=== PATIENT | male | born 1965 | race Caucasian/White ===

== ENCOUNTER 2016-07-27 06:14 | Emergency (ER) | payer OTHER ==
[~2016-07-27] VITALS: Ht 167.6 cm; Wt 99.8 kg
[~2016-07-27 06:14] MED LIST: AMLO2.5T2 PO; ASPI-1077 PO; CALC667T5 PO; EPOE1VIA13 SUBCUT; ERGO500043 PO; FURO-149 PO; HYDR100T25 PO; IRON1CAP17 PO; ISOS60TA4 PO; LIP80 PO; METO100T3 PO; SEVE800T8 PO; TERA1CAP4 PO; [UNRECOGNIZED DRUG - CODE] IJ
[2016-07-27 06:15] VITALS: BP_SYST 162
--- NOTE | 2016-07-27 06:15 | NUR ---
Dr. Donnelly made aware of 96.1 temporal temp. Warming measures initiated.
--- NOTE | 2016-07-27 06:18 | NUR ---
Patient to ER bed 1 to gown for evaluation. Side rails up. Assumed care of pt.
--- NOTE | 2016-07-27 06:20 | NUR ---
Pt. biba for ALOC from home. Per EMS pt. was found altered with a BS of 30 mg/dL, pt. was then given D10 fluids. Upon arrival BS was 164 mg/dL. Pt. is AAOx3. -SOB, -n/v
--- NOTE | 2016-07-27 06:24 | NUR ---
ER at bedside examining patient.
--- NOTE | 2016-07-27 07:14 | NUR ---
Bedside report given to Ector GEE
--- NOTE | 2016-07-27 07:14 | NUR ---
Pt report received from GERARD Curran. Pt AAOx4, non-diaphoretic, skin cool to touch. More warm blankets applied. Pt refuses rectal temp. Oral temp 94. Dr. Donnelly made aware, no new orders received.
[2016-07-27 07:16] LABS: BASOPHILS % (AUTO) 0.5 % (0.0-2.0); EOSINOPHILS # (AUTO) 0.1 K/uL (0.0-0.4); EOSINOPHILS % (AUTO) 1.9 % (0.0-4.0); HEMATOCRIT 32.8 % (36-54); LYMPHOCYTES # (AUTO) 1.7 K/uL (1.0-5.5); LYMPHOCYTES % (AUTO) 23.4 % (20.5-51.5); MEAN CORPUSCULAR HEMOGLOBIN 35 pg (27-31); MEAN CORPUSCULAR HGB CONC 34 % (32-36); MEAN CORPUSCULAR VOLUME 104 fL (79.0-98.0); MONOCYTES # (AUTO) 0.4 K/uL (0.0-1.0); MONOCYTES % (AUTO) 5.9 % (1.7-9.3); NEUTROPHILS # (AUTO) 5.1 K/uL (1.8-7.7); NEUTROPHILS % (AUTO) 68.3 % (40.0-70.0); PLATELET COUNT (AUTO) 180 K/uL (130-430); RED BLOOD CELL COUNT(AUTO) 3.15 MIL/uL (4.2-6.2); RED CELL DISTRIBUTION WIDTH 13.6 % (9.0-15.0); WHITE BLOOD COUNT (AUTO) 7.3 K/uL (4.8-10.8)
[2016-07-27 07:27] LABS: CALCIUM 10.1 mg/dL (8.4-11.0); POTASSIUM 4.8 mmol/L (3.5-5.1)
[2016-07-27 07:30] LABS: PROTHROMBIN TIME 10.5 SECS (9.5-12.5)
[2016-07-27 07:32] LABS: ALBUMIN 3.8 g/dL (3.4-4.8); TOTAL BILIRUBIN 0.3 mg/dL (0.0-1.0); TOTAL PROTEIN, SERUM 7.8 g/dL (6.4-8.3)
[2016-07-27 07:36] LABS: CREATININE 12.59 mg/dL (0.55-1.30)
--- NOTE | 2016-07-27 07:42 | NUR ---
Family member at bedside and states that pt has dialysis scheduled at [address] Gayle to update pt on POC.
--- NOTE | 2016-07-27 07:54 | NUR ---
MALCOM Gayle at bedside examining patient.
--- NOTE | 2016-07-27 08:16 | NUR ---
Oral Temp 97.5. Dietary provides breakfast tray.
--- NOTE | 2016-07-27 10:12 | NUR ---
Patient is resting comfortably and BS and Temp were taken and reported to Dr Gayle and he stated that the patient could go to dialysis. Mother Charito was called and no answer so left a message. Will follow up Addendum: 07/27/16 at 1014 by OSCAR Patient was easily arousable and able to answer questions
--- NOTE | 2016-07-27 10:24 | NUR ---
Patient's mother is here and patient is getting ready to leave and go to dialysis. Waiting for discharge paperwork
--- NOTE | 2016-07-27 10:39 | NUR ---
Patient given written and verbal discharge instructions and verbalizes understanding. ER MD discussed with patient the results and treatment provided. Patient in stable condition. ID arm band removed. IV catheter removed intact and dressing applied, no active bleeding. Patient educated on pain management and to follow up with PMD. Pain Scale 0. Opportunity for questions provided and answered.
[2016-07-27 10:40] VITALS: BP_SYST 135
== END 2016-07-27 10:40 | disposition home or self-care (01) ==
LOC: SED 06:14
DX: E11.649 Type 2 diabetes mellitus with hypoglycemia without coma (principal); T50.991A Poisoning by other drugs, medicaments and biological substances, accidental (unintentional), initial encounter; J44.9 Chronic obstructive pulmonary disease, unspecified; K21.9 Gastro-esophageal reflux disease without esophagitis; E11.22 Type 2 diabetes mellitus with diabetic chronic kidney disease; I12.0 Hypertensive chronic kidney disease with stage 5 chronic kidney disease or end stage renal disease; N18.6 End stage renal disease; I25.2 Old myocardial infarction; Z79.82 Long term (current) use of aspirin; Z88.8 Allergy status to other drugs, medicaments and biological substances; Y92.89 Other specified places as the place of occurrence of the external cause
CPT/HCPCS: 36415; 71010; 80053; 82962; 83605; 83880; 84484; 85025; 85610-TC; 85730-TC; 87040-TC; 93005; 99285

== ENCOUNTER 2017-11-17 03:11 | Emergency (ER) | payer OTHER ==
[~2017-11-17] VITALS: Ht 172.7 cm; Wt 86.2 kg
[~2017-11-17 03:11] MED LIST changes: +ERGO500020 PO; -ERGO500043 PO; +METO100T14 PO; -METO100T3 PO
[2017-11-17 03:15] VITALS: BP_SYST 160
[2017-11-17] MEDS ORDERED: NACL 0.9% 2,000 ML IV ONE (03:48)
[2017-11-17] MEDS ORDERED: HYT1 GT (03:57)
[2017-11-17] MEDS ORDERED: LIP40 PO (03:58)
[2017-11-17] MEDS ORDERED: ACETAMINOPHEN 500 MG TABLET PO ONE (04:00)
[2017-11-17] MEDS ORDERED: NPH,100V2 SQ ×2 (04:05)
[2017-11-17 04:11] LABS: BASOPHILS # (AUTO) 0.1 K/uL (0.0-0.2); BASOPHILS % (AUTO) 0.6 % (0.0-2.0); EOSINOPHILS # (AUTO) 0.2 K/uL (0.0-0.4); EOSINOPHILS % (AUTO) 2.1 % (0.0-4.0); HEMATOCRIT 39.5 % (36-54); HEMOGLOBIN 13.2 g/dL (14.0-18.0); LYMPHOCYTES # (AUTO) 3.4 K/uL (1.0-5.5); MEAN CORPUSCULAR HEMOGLOBIN 36 pg (27-31); MEAN CORPUSCULAR HGB CONC 34 % (32-36); MEAN CORPUSCULAR VOLUME 107 fL (79.0-98.0); MONOCYTES # (AUTO) 0.5 K/uL (0.0-1.0); MONOCYTES % (AUTO) 6.4 % (1.7-9.3); NEUTROPHILS # (AUTO) 4.3 K/uL (1.8-7.7); PLATELET COUNT (AUTO) 215 K/uL (130-430); RED BLOOD CELL COUNT(AUTO) 3.69 MIL/uL (4.2-6.2); RED CELL DISTRIBUTION WIDTH 13.6 % (9.0-15.0); WHITE BLOOD COUNT (AUTO) 8.5 K/uL (4.8-10.8)
[2017-11-17 04:34] LABS: NEUTROPHILS % (AUTO) 50.9 % (40.0-70.0)
[2017-11-17 04:45] VITALS: BP_SYST 154
[2017-11-17 04:52] LABS: ALBUMIN 3.8 g/dL (3.4-4.8); CALCIUM 10.2 mg/dL (8.4-11.0); POTASSIUM 3.9 mmol/L (3.5-5.1); TOTAL BILIRUBIN 0.4 mg/dL (0.0-1.0)
[2017-11-17 04:56] LABS: CREATININE 11.45 mg/dL (0.55-1.30)
== END 2017-11-17 04:45 | disposition home or self-care (01) ==
LOC: SED 03:11
DX: E11.649 Type 2 diabetes mellitus with hypoglycemia without coma (principal); I25.2 Old myocardial infarction; J44.9 Chronic obstructive pulmonary disease, unspecified; Z86.73 Personal history of transient ischemic attack (TIA), and cerebral infarction without residual deficits; Z88.6 Allergy status to analgesic agent; Z79.899 Other long term (current) drug therapy
CPT/HCPCS: 36415; 80053; 83690-TC; 85025; 99284

== ENCOUNTER 2018-05-07 07:47 | Inpatient (IN) | payer OTHER ==
[~2018-05-07] VITALS: Ht 172.7 cm; Wt 89.4 kg
[~2018-05-07 07:47] MED LIST changes: +HYT1 GT; +LIP40 PO; -LIP80 PO; +NPH,100V2 SQ; -TERA1CAP4 PO
[2018-05-07 07:50] VITALS: BP_SYST 105
[2018-05-07] MEDS ORDERED: NACL 0.9% 1,000 ML IV ONE (08:15)
[2018-05-07 08:58] LABS: POTASSIUM 4.1 mmol/L (3.5-5.1)
[2018-05-07 09:00] LABS: HEMATOCRIT 33.6 % (36-54); HEMOGLOBIN 11.4 g/dL (14.0-18.0); LYMPHOCYTES % (AUTO) 19.1 % (20.5-51.5); MEAN CORPUSCULAR HEMOGLOBIN 36 pg (27-31); MEAN CORPUSCULAR HGB CONC 34 % (32-36); MEAN CORPUSCULAR VOLUME 107 fL (79.0-98.0); MONOCYTES % (AUTO) 3.5 % (1.7-9.3); PLATELET COUNT (AUTO) 169 K/uL (130-430); RED BLOOD CELL COUNT(AUTO) 3.13 MIL/uL (4.2-6.2); WHITE BLOOD COUNT (AUTO) 6.7 K/uL (4.8-10.8)
[2018-05-07 09:01] LABS: BASOPHILS # (AUTO) 0.1 K/uL (0.0-0.2); BASOPHILS % (AUTO) 0.8 % (0.0-2.0); EOSINOPHILS % (AUTO) 0.6 % (0.0-4.0); LYMPHOCYTES # (AUTO) 1.3 K/uL (1.0-5.5); MONOCYTES # (AUTO) 0.2 K/uL (0.0-1.0); NEUTROPHILS # (AUTO) 5.1 K/uL (1.8-7.7)
[2018-05-07 09:02] LABS: INR 1.1 (0.80-1.20); PROTHROMBIN TIME 10.8 SECS (9.5-12.5)
[2018-05-07 09:04] LABS: ALBUMIN 3.2 g/dL (3.4-4.8); TOTAL BILIRUBIN 0.3 mg/dL (0.0-1.0)
[2018-05-07] MEDS ORDERED: FOLI-43 PO (09:32)
[2018-05-07] MEDS ORDERED: HYT1 PO (09:32)
[2018-05-07 10:14] LABS: BILIRUBIN,URINE NEGATIVE (NEGATIVE); CLARITY/URINE CLEAR (CLEAR); COLOR,URINE YELLOW (YELLOW); GLUCOSE,URINE NEGATIVE (NEGATIVE); KETONES,URINE NEGATIVE (NEGATIVE); LEUKOCYTE ESTERASE ,URINE NEGATIVE (NEGATIVE); NITRITE, URINE NEGATIVE (NEGATIVE); PROTEIN URINE 1+ (NEGATIVE); UROBILINOGEN,URINE 0.2 (0.2-1.0)
[2018-05-07] MEDS ORDERED: PIPERACILLIN/TAZO 3.375 GM in NS 50 ML IV ONE (10:15)
[2018-05-07] MEDS ORDERED: NACL 0.9% 2,000 ML IV ONE (10:15)
[2018-05-07 10:17] LABS: BLOOD, URINE TRACE (NEGATIVE)
[2018-05-07 10:49] LABS: BACTERIA,URINE FEW /HPF (None Seen)
[2018-05-07 10:50] LABS: MUCUS,URINE None Seen /LPF (None Seen); WBC,URINE 0-3 /HPF (0-3); YEAST,URINE None Seen /HPF (None Seen)
[2018-05-07] MEDS ORDERED: DEXTROSE 50% JECT 50 ML DISP.SYRIN IVP ONE (11:00)
[2018-05-07] MEDS ORDERED: PIPERACILLIN/TAZOBACTAM 3.375 GM/VIAL (ZOSYN) IV ONE (11:14)
[2018-05-07] MEDS ORDERED: D10W 1,000 ML IV SCH (11:30)
[2018-05-07 12:28] VITALS: BP_SYST 140
[2018-05-07] MEDS ORDERED: ASPIRIN 81 MG TAB.CHEW PO ONE (16:45)
[2018-05-07 17:54] VITALS: BP_SYST 108
[2018-05-07] MEDS: ATORVASTATIN 20 MG TABLET PO SCH (18:02)
[2018-05-07] MEDS: SEVELAMER HCL 800 MG TABLET PO SCH (18:02)
[2018-05-07 19:58] VITALS: BP_SYST 152
[2018-05-07] MEDS: METOPROLOL TARTRATE 50 MG TABLET PO SCH (20:51)
[2018-05-07] MEDS: ISOSORBIDE MONONITRATE 30 MG TAB.ER.24H PO SCH (20:51)
[2018-05-07] MEDS ORDERED: ZOLPIDEM TARTRATE 5 MG TABLET PO SCH (21:30)
[2018-05-07] MEDS: hydrALAZINE HCL 25 MG TABLET PO SCH (22:09)
[2018-05-08 02:38] VITALS: BP_SYST 106
[2018-05-08] MEDS: SEVELAMER HCL 800 MG TABLET PO SCH ×3 (07:47→17:37)
[2018-05-08 08:16] VITALS: BP_SYST 123
[2018-05-08] MEDS: ASPIRIN 81 MG TAB.CHEW PO SCH (09:10)
[2018-05-08] MEDS: FOLIC ACID 1 MG TABLET PO SCH (09:10)
[2018-05-08] MEDS: ISOSORBIDE MONONITRATE 30 MG TAB.ER.24H PO SCH ×2 (09:11→20:31)
[2018-05-08] MEDS: METOPROLOL TARTRATE 50 MG TABLET PO SCH ×2 (09:11→20:31)
[2018-05-08] MEDS: hydrALAZINE HCL 25 MG TABLET PO SCH ×3 (09:12→20:32)
[2018-05-08 09:14] LABS: CALCIUM 8.3 mg/dL (8.4-11.0); POTASSIUM 3.7 mmol/L (3.5-5.1)
[2018-05-08 09:19] LABS: ALBUMIN 3.1 g/dL (3.4-4.8); TOTAL BILIRUBIN 0.6 mg/dL (0.0-1.0)
[2018-05-08 09:24] LABS: CREATININE 8.19 mg/dL (0.55-1.30)
[2018-05-08 09:31] LABS: HEMOGLOBIN 10.9 g/dL (14.0-18.0); MEAN CORPUSCULAR VOLUME 105 fL (79.0-98.0); RED BLOOD CELL COUNT(AUTO) 3.03 MIL/uL (4.2-6.2); WHITE BLOOD COUNT (AUTO) 8.1 K/uL (4.8-10.8)
[2018-05-08 09:32] LABS: BASOPHILS # (AUTO) 0.1 K/uL (0.0-0.2); BASOPHILS % (AUTO) 0.8 % (0.0-2.0); EOSINOPHILS # (AUTO) 0.1 K/uL (0.0-0.4); EOSINOPHILS % (AUTO) 1.3 % (0.0-4.0); MEAN CORPUSCULAR HEMOGLOBIN 36 pg (27-31); MEAN CORPUSCULAR HGB CONC 34 % (32-36); MONOCYTES # (AUTO) 0.6 K/uL (0.0-1.0); MONOCYTES % (AUTO) 7.1 % (1.7-9.3); NEUTROPHILS # (AUTO) 4.4 K/uL (1.8-7.7); NEUTROPHILS % (AUTO) 53.8 % (40.0-70.0); PLATELET COUNT (AUTO) 161 K/uL (130-430); RED CELL DISTRIBUTION WIDTH 14.8 % (9.0-15.0)
[2018-05-08 12:40] VITALS: BP_SYST 148
[2018-05-08] MEDS ORDERED: DEXTROSE 50% JECT 50 ML DISP.SYRIN IVP PRN (15:30)
[2018-05-08 17:00] VITALS: BP_SYST 139
[2018-05-08] MEDS: ATORVASTATIN 20 MG TABLET PO SCH (17:38)
[2018-05-08 20:00] VITALS: BP_SYST 143
[2018-05-09 00:59] VITALS: BP_SYST 61
[2018-05-09 06:07] LABS: CALCIUM 8.4 mg/dL (8.4-11.0); POTASSIUM 4.6 mmol/L (3.5-5.1)
[2018-05-09 06:23] LABS: ALBUMIN 2.8 g/dL (3.4-4.8); TOTAL BILIRUBIN 0.5 mg/dL (0.0-1.0)
[2018-05-09 06:52] LABS: CREATININE 11.32 mg/dL (0.55-1.30)
[2018-05-09 07:52] VITALS: BP_SYST 105
[2018-05-09] MEDS: FOLIC ACID 1 MG TABLET PO SCH (08:44)
[2018-05-09] MEDS: SEVELAMER HCL 800 MG TABLET PO SCH ×3 (08:44→17:27)
[2018-05-09] MEDS: ASPIRIN 81 MG TAB.CHEW PO SCH (08:46)
[2018-05-09] MEDS: METOPROLOL TARTRATE 50 MG TABLET PO SCH ×2 (08:46→20:29)
[2018-05-09] MEDS: ISOSORBIDE MONONITRATE 30 MG TAB.ER.24H PO SCH ×2 (08:46→20:30)
[2018-05-09] MEDS: hydrALAZINE HCL 25 MG TABLET PO SCH ×3 (08:50→20:30)
[2018-05-09] MEDS: INSULIN LISPRO SLIDING SCALE 100 UNITS/ML VIAL (humaLOG) SUBCUT PRN ×2 (11:49→20:35)
[2018-05-09 12:46] VITALS: BP_SYST 128
[2018-05-09 16:28] VITALS: BP_SYST 141
[2018-05-09] MEDS: ATORVASTATIN 20 MG TABLET PO SCH (17:27)
[2018-05-09 20:00] VITALS: BP_SYST 129
[2018-05-10 01:07] VITALS: BP_SYST 140
[2018-05-10] MEDS ORDERED: INSULIN GLARGINE 100 UNITS/ML 10 ML VIAL SUBCUT SCH (07:00)
[2018-05-10 07:53] VITALS: BP_SYST 124
[2018-05-10] MEDS: hydrALAZINE HCL 25 MG TABLET PO SCH ×2 (08:39→14:42)
[2018-05-10] MEDS: METOPROLOL TARTRATE 50 MG TABLET PO SCH (08:40)
[2018-05-10] MEDS: ISOSORBIDE MONONITRATE 30 MG TAB.ER.24H PO SCH (08:40)
[2018-05-10] MEDS: ASPIRIN 81 MG TAB.CHEW PO SCH (08:40)
[2018-05-10] MEDS: FOLIC ACID 1 MG TABLET PO SCH (08:40)
[2018-05-10] MEDS: SEVELAMER HCL 800 MG TABLET PO SCH ×3 (08:41→17:02)
[2018-05-10] MEDS: INSULIN LISPRO SLIDING SCALE 100 UNITS/ML VIAL (humaLOG) SUBCUT PRN ×2 (11:31→17:06)
[2018-05-10 12:55] VITALS: BP_SYST 150
[2018-05-10 16:24] VITALS: BP_SYST 120
[2018-05-10 16:53] VITALS: BP_SYST 121
[2018-05-10] MEDS: ATORVASTATIN 20 MG TABLET PO SCH (17:02)
== END 2018-05-10 18:15 | disposition home or self-care (01) | DRG 280 ==
LOC: SED 07:47 → STU 11:28
PROVIDERS: ADMIT Internal Medicine; ATTEND Internal Medicine
PROC: 5A1D70Z Performance of Urinary Filtration, Intermittent, Less than 6 Hours Per Day (ICD-10-PCS; principal; 2018-05-07)
PROC: 5A1D70Z Performance of Urinary Filtration, Intermittent, Less than 6 Hours Per Day (ICD-10-PCS; 2018-05-09)
DX: I21.A1 Myocardial infarction type 2 (principal); N18.6 End stage renal disease; G93.41 Metabolic encephalopathy; J44.0 Chronic obstructive pulmonary disease with (acute) lower respiratory infection; I12.0 Hypertensive chronic kidney disease with stage 5 chronic kidney disease or end stage renal disease; E11.649 Type 2 diabetes mellitus with hypoglycemia without coma; E11.22 Type 2 diabetes mellitus with diabetic chronic kidney disease; I71.4 Abdominal aortic aneurysm, without rupture; D64.9 Anemia, unspecified; I48.0 Paroxysmal atrial fibrillation; E21.3 Hyperparathyroidism, unspecified; T68.XXXA Hypothermia, initial encounter; J20.9 Acute bronchitis, unspecified; E78.00 Pure hypercholesterolemia, unspecified; E78.5 Hyperlipidemia, unspecified; H57.02 Anisocoria; I25.10 Atherosclerotic heart disease of native coronary artery without angina pectoris; I25.2 Old myocardial infarction; Z79.4 Long term (current) use of insulin; Z86.73 Personal history of transient ischemic attack (TIA), and cerebral infarction without residual deficits; Z95.5 Presence of coronary angioplasty implant and graft; Z99.2 Dependence on renal dialysis; Z88.6 Allergy status to analgesic agent; Z95.2 Presence of prosthetic heart valve
CPT/HCPCS: 36415; 36600; 70450-TC; 71045; 80053; 81000-TC; 82803-TC; 82962; 83036; 83605; 83880; 84443-TC; 84484; 85025; 85610-TC; 85730-TC; 87040-TC; 87081; 87086; 90935; 90937; 93005; 93306; 95816; 96361; 96365; 96375; 99291; G0378; J1815; J2543; J7030

== ENCOUNTER 2018-09-12 23:47 | Inpatient (IN) | payer OTHER ==
[~2018-09-12] VITALS: Ht 172.7 cm; Wt 88.0 kg
[~2018-09-12 23:47] MED LIST changes: -AMLO2.5T2 PO; +FOLI-43 PO; -FURO-149 PO; +HYT1 PO; -NPH,100V2 SQ
[2018-09-12 23:50] VITALS: BP_SYST 124
[2018-09-13] MEDS ORDERED: NACL 0.9% 1,000 ML IV ONE (00:15)
[2018-09-13 00:27] LABS: BASOPHILS # (AUTO) 0.1 K/uL (0.0-0.2); BASOPHILS % (AUTO) 1.2 % (0.0-2.0); EOSINOPHILS # (AUTO) 0.1 K/uL (0.0-0.4); EOSINOPHILS % (AUTO) 2.1 % (0.0-4.0); HEMATOCRIT 29.3 % (36-54); HEMOGLOBIN 9.8 g/dL (14.0-18.0); LYMPHOCYTES % (AUTO) 19.9 % (20.5-51.5); MEAN CORPUSCULAR HEMOGLOBIN 36 pg (27-31); MEAN CORPUSCULAR HGB CONC 33 % (32-36); MEAN CORPUSCULAR VOLUME 107 fL (79.0-98.0); MONOCYTES # (AUTO) 0.5 K/uL (0.0-1.0); MONOCYTES % (AUTO) 9.2 % (1.7-9.3); NEUTROPHILS # (AUTO) 3.4 K/uL (1.8-7.7); NEUTROPHILS % (AUTO) 67.6 % (40.0-70.0); PLATELET COUNT (AUTO) 154 K/uL (130-430); RED BLOOD CELL COUNT(AUTO) 2.74 MIL/uL (4.2-6.2); RED CELL DISTRIBUTION WIDTH 14.4 % (9.0-15.0)
[2018-09-13 00:43] LABS: CALCIUM 9.3 mg/dL (8.4-11.0); CREATININE 6.32 mg/dL (0.55-1.30)
[2018-09-13] MEDS ORDERED: DEXTROSE 50% JECT 50 ML DISP.SYRIN IVP ONE (00:45)
[2018-09-13 00:50] LABS: ALBUMIN 3.2 g/dL (3.4-4.8); TOTAL BILIRUBIN 0.3 mg/dL (0.0-1.0)
[2018-09-13 02:41] VITALS: BP_SYST 143
[2018-09-13 05:33] LABS: BASOPHILS # (AUTO) 0.1 K/uL (0.0-0.2); BASOPHILS % (AUTO) 1.1 % (0.0-2.0); EOSINOPHILS % (AUTO) 0.5 % (0.0-4.0); HEMATOCRIT 28.2 % (36-54); HEMOGLOBIN 9.4 g/dL (14.0-18.0); LYMPHOCYTES # (AUTO) 0.9 K/uL (1.0-5.5); MEAN CORPUSCULAR HEMOGLOBIN 36 pg (27-31); MEAN CORPUSCULAR HGB CONC 33 % (32-36); MEAN CORPUSCULAR VOLUME 107 fL (79.0-98.0); MONOCYTES # (AUTO) 0.4 K/uL (0.0-1.0); NEUTROPHILS # (AUTO) 4.4 K/uL (1.8-7.7); NEUTROPHILS % (AUTO) 75.4 % (40.0-70.0); PLATELET COUNT (AUTO) 158 K/uL (130-430); RED BLOOD CELL COUNT(AUTO) 2.65 MIL/uL (4.2-6.2); RED CELL DISTRIBUTION WIDTH 14.2 % (9.0-15.0); WHITE BLOOD COUNT (AUTO) 5.8 K/uL (4.8-10.8)
[2018-09-13 05:48] LABS: ALBUMIN 2.9 g/dL (3.4-4.8); CALCIUM 8.8 mg/dL (8.4-11.0); CREATININE 6.65 mg/dL (0.55-1.30); POTASSIUM 4.9 mmol/L (3.5-5.1); TOTAL BILIRUBIN 0.5 mg/dL (0.0-1.0)
[2018-09-13] MEDS: INSULIN REGULAR, HUMAN 100 UNITS/ML, 10 ML VIAL (humuLIN R) SUBCUT PRN ×5 (06:08→21:30)
[2018-09-13 08:00] VITALS: BP_SYST 136
[2018-09-13] MEDS: FOLIC ACID 1 MG TABLET PO SCH (08:28)
[2018-09-13] MEDS: TERAZOSIN HCL 1 MG CAPSULE (HYTRIN) PO SCH ×2 (08:28→21:21)
[2018-09-13] MEDS: hydrALAZINE HCL 25 MG TABLET PO SCH ×3 (08:29→21:23)
[2018-09-13] MEDS: ISOSORBIDE MONONITRATE 30 MG TAB.ER.24H PO SCH ×2 (08:30→21:22)
[2018-09-13] MEDS: ASPIRIN 81 MG TAB.CHEW PO SCH (08:30)
[2018-09-13] MEDS ORDERED: TERAZOSIN HCL 1 MG CAPSULE (HYTRIN) GT SCH (09:00)
[2018-09-13 11:30] VITALS: BP_SYST 125
[2018-09-13 15:31] VITALS: BP_SYST 117
[2018-09-13] MEDS: ATORVASTATIN 20 MG TABLET PO SCH (17:03)
[2018-09-13 21:15] VITALS: BP_SYST 154
[2018-09-14 00:51] VITALS: BP_SYST 136
[2018-09-14 08:00] VITALS: BP_SYST 130
[2018-09-14] MEDS: hydrALAZINE HCL 25 MG TABLET PO SCH ×2 (08:02→15:00)
[2018-09-14] MEDS: TERAZOSIN HCL 1 MG CAPSULE (HYTRIN) PO SCH (08:02)
[2018-09-14] MEDS: FOLIC ACID 1 MG TABLET PO SCH (08:05)
[2018-09-14] MEDS: ISOSORBIDE MONONITRATE 30 MG TAB.ER.24H PO SCH (08:05)
[2018-09-14] MEDS: ASPIRIN 81 MG TAB.CHEW PO SCH (08:05)
[2018-09-14] MEDS: INSULIN REGULAR, HUMAN 100 UNITS/ML, 10 ML VIAL (humuLIN R) SUBCUT PRN ×2 (11:28→17:05)
[2018-09-14 12:34] VITALS: BP_SYST 136
[2018-09-14 16:20] VITALS: BP_SYST 110
[2018-09-14] MEDS ORDERED: EPOETIN ALFA 10,000 UNITS/ML VIAL SUBCUT SCH (17:00)
[2018-09-14] MEDS: ATORVASTATIN 20 MG TABLET PO SCH (17:04)
[2018-09-14 18:11] VITALS: BP_SYST 130
== END 2018-09-14 19:49 | disposition home or self-care (01) | DRG 637 ==
LOC: SED 23:47 → STU 09-13 01:51
PROVIDERS: ADMIT Family Medicine; ATTEND Family Medicine
PROC: 5A1D70Z Performance of Urinary Filtration, Intermittent, Less than 6 Hours Per Day (ICD-10-PCS; principal; 2018-09-14)
DX: E11.649 Type 2 diabetes mellitus with hypoglycemia without coma (principal); G93.41 Metabolic encephalopathy; I12.0 Hypertensive chronic kidney disease with stage 5 chronic kidney disease or end stage renal disease; E44.0 Moderate protein-calorie malnutrition; N18.6 End stage renal disease; E11.22 Type 2 diabetes mellitus with diabetic chronic kidney disease; I25.10 Atherosclerotic heart disease of native coronary artery without angina pectoris; J44.9 Chronic obstructive pulmonary disease, unspecified; E11.21 Type 2 diabetes mellitus with diabetic nephropathy; D63.1 Anemia in chronic kidney disease; Z88.8 Allergy status to other drugs, medicaments and biological substances; Z79.899 Other long term (current) drug therapy; I25.2 Old myocardial infarction; Z86.73 Personal history of transient ischemic attack (TIA), and cerebral infarction without residual deficits; Z79.4 Long term (current) use of insulin; Z68.29 Body mass index [BMI] 29.0-29.9, adult; T38.3X5A Adverse effect of insulin and oral hypoglycemic [antidiabetic] drugs, initial encounter; Y92.009 Unspecified place in unspecified non-institutional (private) residence as the place of occurrence of the external cause
CPT/HCPCS: 36415; 80053; 82962; 85025; 87081; 90935; 93005; 96360; 96374; 99291; G0378; J0885; J1815

== ENCOUNTER 2019-02-24 23:05 | Emergency (ER) | payer OTHER ==
[~2019-02-24] VITALS: Ht 175.3 cm; Wt 82.6 kg
[~2019-02-24 23:05] MED LIST changes: -CALC667T5 PO; +CALC667T6 PO
[2019-02-24 23:15] VITALS: BP_SYST 160
--- NOTE | 2019-02-24 23:30 | NUR ---
ER at bedside examining patient.
--- NOTE | 2019-02-24 23:30 | NUR ---
Patient to ER bed 3 to gown for evaluation. Side rails up.
--- NOTE | 2019-02-25 | NUR ---
Pt brought in by ambulance. Pt states that he has AV shunt in L arms that has been bleeding for approx 2 hours without relief. pt was concerned that he would bleed too much, so he called 911. Pt denies chest pain, nausea, vomiting, diarrhea, shortness of breath. Pt denies any medical complaint at this time. Shunt site appears to have no s/s of infection.
[2019-02-25 00:58] VITALS: BP_SYST 158
--- NOTE | 2019-02-25 00:58 | NUR ---
Patient given written and verbal discharge instructions and verbalizes understanding. ER MD discussed with patient the results and treatment provided. Patient in stable condition. ID arm band removed. No IV catheter, No active bleeding from Shunt site Rx of given. Patient educated on pain management and to follow up with PMD. Pain Scale 0/10. Opportunity for questions provided and answered. Medication side effect fact sheet provided.
== END 2019-02-25 00:58 | disposition home or self-care (01) ==
LOC: SED 23:05
DX: T82.838A Hemorrhage due to vascular prosthetic devices, implants and grafts, initial encounter (principal); I25.2 Old myocardial infarction; I25.10 Atherosclerotic heart disease of native coronary artery without angina pectoris; I10 Essential (primary) hypertension; E11.9 Type 2 diabetes mellitus without complications; J44.9 Chronic obstructive pulmonary disease, unspecified; N28.9 Disorder of kidney and ureter, unspecified; E03.9 Hypothyroidism, unspecified; Z79.899 Other long term (current) drug therapy; Z88.6 Allergy status to analgesic agent; Z79.82 Long term (current) use of aspirin; Z86.73 Personal history of transient ischemic attack (TIA), and cerebral infarction without residual deficits
CPT/HCPCS: 99283

== ENCOUNTER 2019-11-11 23:44 | Emergency (ER) | payer OTHER ==
[~2019-11-11] VITALS: Ht 172.7 cm; Wt 81.2 kg
[2019-11-11 23:44] VITALS: BP_SYST 134
--- NOTE | 2019-11-11 23:50 | NUR ---
Patient to ER bed 6 to gown for evaluation. Side rails up.
--- NOTE | 2019-11-11 23:56 | NUR ---
PT PRESENTS WITH BLS AMBULANCE CO RIGHT UPPER ARM SHUNT BEGAN BLEEDING WHILE AT HOME PRIOR TO COMING. STATES HE HAD DIALYSIS THIS MORNING WITH NO COMPLICATIONS. TONIGHT SHUNT BEGAN TO BLEED LARGE AMOUNTS OF BLOOD AT HOME. EMS PLACED A COMPRSSION DRESSING OVER THE SITE. DENIES ANY PAIN. AAOX4, V/S STABLE
--- NOTE | 2019-11-12 00:08 | NUR ---
DR. SCHMITT AT THE BEDSIDE EVALUATING PT
--- NOTE | 2019-11-12 00:09 | NUR ---
DR. SCHMITT EVALUATED LEFT ARM AND RE-WRAPPED WITH GAUZE AND COMPRESSION DRESSING. NO BLEEDING NOTED. TO FOLLOW UP WITH PRIMARY MD FOR EVAL. PT TOLERATED WELL.
--- NOTE | 2019-11-12 00:15 | NUR ---
Patient given written and verbal discharge instructions and verbalizes understanding. ER MD discussed with patient the results and treatment provided. Patient in stable condition. ID arm band removed. Patient educated on pain management and to follow up with PMD. Pain Scale 0/10. Opportunity for questions provided and answered. Medication side effect fact sheet provided.
[2019-11-12 00:20] VITALS: BP_SYST 134
== END 2019-11-12 00:20 | disposition home or self-care (01) ==
LOC: SED 23:44
DX: T82.838A Hemorrhage due to vascular prosthetic devices, implants and grafts, initial encounter (principal); I12.0 Hypertensive chronic kidney disease with stage 5 chronic kidney disease or end stage renal disease; E11.22 Type 2 diabetes mellitus with diabetic chronic kidney disease; N18.6 End stage renal disease; E03.9 Hypothyroidism, unspecified; J44.9 Chronic obstructive pulmonary disease, unspecified; I25.2 Old myocardial infarction; Z86.79 Personal history of other diseases of the circulatory system; Z79.4 Long term (current) use of insulin; Z79.899 Other long term (current) drug therapy; Z79.82 Long term (current) use of aspirin; Z88.8 Allergy status to other drugs, medicaments and biological substances; X58.XXXA Exposure to other specified factors, initial encounter
CPT/HCPCS: 99283

== ENCOUNTER 2021-06-11 09:15 | Emergency (ER) | payer OTHER ==
[~2021-06-11] VITALS: Ht 172.7 cm; Wt 77.1 kg
[~2021-06-11 09:15] MED LIST changes: -ISOS60TA4 PO; +ISOS60TA71 PO
--- NOTE | 2021-06-11 09:20 | NUR ---
linda de la garza rn. pt was bib pov with mother. pt states had glf yesterday and today at dialysis c/o left arm pain diaysis was cxl pt was told to go to ED. pt is a [facility] patient. at bedside during triage. pt room 4. report given to medhat dennis
[2021-06-11 09:32] VITALS: BP_SYST 164
--- NOTE | 2021-06-11 09:42 | NUR ---
MD ALFRED AT BEDSIDE ASSESSING PT.
--- NOTE | 2021-06-11 10:15 | NUR ---
XRAYS COMPLETED. PT TOLERATED WELL
[2021-06-11] MEDS ORDERED: HYDR-3917 PO (11:17)
--- NOTE | 2021-06-11 11:22 | NUR ---
SLING APPLIED TO THE RIGHT ARM PER MD ORDER. PAIN MEDICATION GIVEN
[2021-06-11] MEDS ORDERED: HYDROcodone/ACETAMIN 7.5-325 MG TAB ONE (11:26)
[2021-06-11] MEDS ORDERED: HYDROcodone/ACETAMIN 7.5-325 MG TAB PO ONE (11:30)
--- NOTE | 2021-06-11 11:37 | NUR ---
Patient given written and verbal discharge instructions and verbalizes understanding. ER MD discussed with patient the results and treatment provided. Patient in stable condition. ID arm band removed. Rx of NORCO given. Patient educated on pain management and to follow up with PMD. Pain Scale 1/10. Opportunity for questions provided and answered. Medication side effect fact sheet provided.
[2021-06-11 11:39] VITALS: BP_SYST 147
== END 2021-06-11 11:37 | disposition home or self-care (01) ==
LOC: SED 09:15
DX: S52.122A Displaced fracture of head of left radius, initial encounter for closed fracture (principal); I10 Essential (primary) hypertension; E11.9 Type 2 diabetes mellitus without complications; J44.9 Chronic obstructive pulmonary disease, unspecified; I25.10 Atherosclerotic heart disease of native coronary artery without angina pectoris; Z88.8 Allergy status to other drugs, medicaments and biological substances; Z79.899 Other long term (current) drug therapy; W01.0XXA Fall on same level from slipping, tripping and stumbling without subsequent striking against object, initial encounter; Y93.89 Activity, other specified; Y92.89 Other specified places as the place of occurrence of the external cause; Y99.8 Other external cause status
CPT/HCPCS: 73090; 99284

== ENCOUNTER 2021-07-21 02:25 | Emergency (ER) | payer OTHER ==
[~2021-07-21] VITALS: Ht 172.7 cm; Wt 77.1 kg
[~2021-07-21 02:25] MED LIST changes: +HYDR-3917 PO
[2021-07-21 02:30] VITALS: BP_SYST 174
[2021-07-21] MEDS: LIDOCAINE 1% 10 MG/ML, 20 ML MDV INJ ONE (02:30)
--- NOTE | 2021-07-21 02:30 | NUR ---
Patient triaged and placed in waiting room in the [address]. VSS and patient appears in no acute distress at this time. Accompanied by emt, awaiting available bed, and MD notified of need for MSE.
--- NOTE | 2021-07-21 02:35 | NUR ---
Report given to Edu Fabian(camryn).
[2021-07-21 03:11] LABS: BASOPHILS # (AUTO) 0.1 K/uL (0.0-0.2); BASOPHILS % (AUTO) 1.4 % (0.0-2.0); EOSINOPHILS # (AUTO) 0.2 K/uL (0.0-0.4); EOSINOPHILS % (AUTO) 2.9 % (0.0-4.0); HEMATOCRIT 28.4 % (36-54); HEMOGLOBIN 9.6 g/dL (14.0-18.0); LYMPHOCYTES # (AUTO) 2.4 K/uL (1.0-5.5); LYMPHOCYTES % (AUTO) 39.7 % (20.5-51.5); MEAN CORPUSCULAR HEMOGLOBIN 35 pg (27-31); MEAN CORPUSCULAR HGB CONC 34 % (32-36); MEAN CORPUSCULAR VOLUME 105 fL (79.0-98.0); MONOCYTES # (AUTO) 0.4 K/uL (0.0-1.0); MONOCYTES % (AUTO) 6.7 % (1.7-9.3); NEUTROPHILS % (AUTO) 49.3 % (40.0-70.0); PLATELET COUNT (AUTO) 173 K/uL (130-430); RED BLOOD CELL COUNT(AUTO) 2.71 MIL/uL (4.2-6.2); RED CELL DISTRIBUTION WIDTH 16.3 % (9.0-15.0)
[2021-07-21 03:29] LABS: CALCIUM 9.3 mg/dL (8.4-11.0); POTASSIUM 4.4 mmol/L (3.5-5.1)
[2021-07-21 03:45] LABS: ALBUMIN 3.1 g/dL (3.4-4.8); TOTAL BILIRUBIN 0.4 mg/dL (0.0-1.0)
[2021-07-21 03:57] LABS: CREATININE 10.76 mg/dL (0.55-1.30)
--- NOTE | 2021-07-21 04:18 | NUR ---
Pt C/O bleeding from dialysis site AOX4 VSS NAD at this time VSS Will continue to monitor
--- NOTE | 2021-07-21 04:21 | NUR ---
[facility]yn lab called fo shannan Cortez @10.46 made aware
--- NOTE | 2021-07-21 04:42 | NUR ---
Patient given written and verbal discharge instructions and verbalizes understanding. ER MD discussed with patient the results and treatment provided. Patient in stable condition. ID arm band removed. NO Rx of given. Patient educated on pain management and to follow up with PMD. Pain Scale 0/10. Opportunity for questions provided and answered. Medication side effect fact sheet provided.
[2021-07-21 04:45] VITALS: BP_SYST 131
== END 2021-07-21 04:42 | disposition home or self-care (01) ==
LOC: SED 02:25
DX: I77.0 Arteriovenous fistula, acquired (principal); I25.10 Atherosclerotic heart disease of native coronary artery without angina pectoris; I25.2 Old myocardial infarction; E11.22 Type 2 diabetes mellitus with diabetic chronic kidney disease; I10 Essential (primary) hypertension; N18.6 End stage renal disease; Z99.2 Dependence on renal dialysis; Z88.6 Allergy status to analgesic agent; Z79.82 Long term (current) use of aspirin
CPT/HCPCS: 36415; 80053; 85025; 99283

== ENCOUNTER 2021-08-08 15:24 | Emergency (ER) | payer OTHER ==
[~2021-08-08] VITALS: Ht 172.7 cm; Wt 82.6 kg
[2021-08-08 15:37] VITALS: BP_SYST 146
--- NOTE | 2021-08-08 15:37 | NUR ---
Placed in room 04 . Placed on hazmat tanker driver, blood pressure machine and pulse oximeter. To gown for exam. Side rails up. Report given to GERARD RODRIGUES
[2021-08-08] MEDS ORDERED: TRANEXAMIC ACID 1,000 MG/10 ML VIAL TP ONE (16:00)
[2021-08-08] MEDS ORDERED: HYDROmorphone 2 MG/ML VIAL IM ONE (16:30)
[2021-08-08] MEDS ORDERED: HYDROmorphone 1 MG/ML INJ. CARTRIDGE IM ONE (16:45)
--- NOTE | 2021-08-08 17:13 | NUR ---
1700 B/P 111/58, AFTER 2MG DILAUDID IN B/P DROPPED 66/44. NOTIFIED ERMD TO START NS, PLACED IN [place] POSITION
[2021-08-08 17:58] LABS: BASOPHILS # (AUTO) 0.1 K/uL (0.0-0.2); BASOPHILS % (AUTO) 0.9 % (0.0-2.0); EOSINOPHILS # (AUTO) 0.1 K/uL (0.0-0.4); EOSINOPHILS % (AUTO) 0.9 % (0.0-4.0); LYMPHOCYTES % (AUTO) 12.3 % (20.5-51.5); MEAN CORPUSCULAR HEMOGLOBIN 33 pg (27-31); MEAN CORPUSCULAR HGB CONC 33 % (32-36); MEAN CORPUSCULAR VOLUME 101 fL (79.0-98.0); MONOCYTES # (AUTO) 0.5 K/uL (0.0-1.0); MONOCYTES % (AUTO) 6.4 % (1.7-9.3); NEUTROPHILS # (AUTO) 6.3 K/uL (1.8-7.7); NEUTROPHILS % (AUTO) 79.5 % (40.0-70.0); PLATELET COUNT (AUTO) 165 K/uL (130-430); RED CELL DISTRIBUTION WIDTH 19.5 % (9.0-15.0); WHITE BLOOD COUNT (AUTO) 7.9 K/uL (4.8-10.8)
[2021-08-08 18:11] LABS: INR 1.2 (0.80-1.20); PROTHROMBIN TIME 12.1 SECS (9.5-12.5)
[2021-08-08 18:13] LABS: CALCIUM 7.3 mg/dL (8.4-11.0); POTASSIUM 4.7 mmol/L (3.5-5.1)
[2021-08-08 18:19] LABS: ALBUMIN 2.1 g/dL (3.4-4.8); TOTAL BILIRUBIN 0.4 mg/dL (0.0-1.0)
[2021-08-08 18:25] LABS: HEMATOCRIT 15.6 % (36-54); HEMOGLOBIN 5.2 g/dL (14.0-18.0); RED BLOOD CELL COUNT(AUTO) 1.55 MIL/uL (4.2-6.2)
[2021-08-08 18:33] LABS: CREATININE 12.77 mg/dL (0.55-1.30)
[2021-08-08] MEDS ORDERED: fentaNYL CITRATE/PF 100 MCG/2 ML AMP IVP ONE (19:15)
--- NOTE | 2021-08-08 19:15 | NUR ---
First contact with pt. Pt has CC of upper arm bleed at his fistula site. Pt currently laying in gurney and complaining of pain. fistula site is edematous and erythemic, pt has tourniquette placed above and below the site. Pt placed in trendelenburg to offset low BP. Awaiting reevaluation and further orders. Will continue to monitor.
--- NOTE | 2021-08-08 19:43 | NUR ---
EKG given to for interpretation.
--- NOTE | 2021-08-08 20:04 | NUR ---
Applied pressure dressing per instruction from MD. Bleeding to left fistula currently controlled. Pt tolerated well.
--- NOTE | 2021-08-08 20:40 | NUR ---
Pt laying in gurney with eyes closed, VSS. Awaiting blood to initiate transfusion.
--- NOTE | 2021-08-08 21:45 | NUR ---
Blood transfusion initiated, unit number [id number]. Pt's initial VSS. Will continue to monitor pt.
--- NOTE | 2021-08-08 22:00 | NUR ---
Pt shows no signs of adverse reaction to transfusion. VSS. Will continue to monitor.
--- NOTE | 2021-08-08 23:25 | NUR ---
Pt completed transfusion. No signs of adverse reactions noted. VSS
--- NOTE | 2021-08-08 23:30 | NUR ---
Second transfusion initiated, unit number [id number], Initial VSS. Will continue to monitor
--- NOTE | 2021-08-08 23:45 | NUR ---
Pt shows no signs or symptoms of adverse reaction to second unit, [id number]. VSS
--- NOTE | 2021-08-09 00:51 | NUR ---
MARION CALLED WITH [employer] [facility], SPOKE TO WILLIE PATIENT WILL BE GOING TO [facility] ROOM:[id number] WILL BE ACCEPTING PATIENT KAYLEIGH IS THE RN [phone] TO CALL REPORT ETA:2AM WITH PRN
--- NOTE | 2021-08-09 02:06 | NUR ---
Report given to transportation department head and Elisabeth ([place] GERARD)
--- NOTE | 2021-08-09 02:07 | NUR ---
Report given to transfer RN, Amanda Roberts, unit #[id number]
[2021-08-09 02:11] VITALS: BP_SYST 140
== END 2021-08-09 02:10 | disposition short-term general hospital (02) ==
LOC: SED 15:24
DX: T82.838A Hemorrhage due to vascular prosthetic devices, implants and grafts, initial encounter (principal); D50.0 Iron deficiency anemia secondary to blood loss (chronic); I25.2 Old myocardial infarction; I10 Essential (primary) hypertension; E11.22 Type 2 diabetes mellitus with diabetic chronic kidney disease; N18.6 End stage renal disease; Z99.2 Dependence on renal dialysis; Z79.4 Long term (current) use of insulin; Z79.82 Long term (current) use of aspirin; Z79.899 Other long term (current) drug therapy; Z20.822 Contact with and (suspected) exposure to COVID-19
CPT/HCPCS: 36415; 36430; 80053; 85025; 85610; 86886; 86900; 86901; 86920; 87426; 93005; 96372; 96374; 99291; J1170 ×2; J3010; J3490; P9021

== ENCOUNTER 2021-08-12 00:04 | Inpatient (IN) | payer OTHER ==
[~2021-08-12] VITALS: Ht 172.7 cm; Wt 85.7 kg
[2021-08-12 00:10] VITALS: BP_SYST 160
--- NOTE | 2021-08-12 00:20 | NUR ---
Pt to bed 6 w/ c/o midsternal CP pressure like in nature, 7/10 pain. mild skin pallor. Respirations tachypneic. Placed on 2L NC. tool machine setup operator. call light within reach. Pulse oximetry on.
[2021-08-12] MEDS ORDERED: ASPIRIN 325 MG TABLET PO ONE (00:30)
[2021-08-12] MEDS ORDERED: dilTIAZem HCL IVP 5 MG/ML VIAL IVP ONE ×2 (00:30→01:45)
[2021-08-12] MEDS ORDERED: NITROGLYCERIN 1 INCH (GM) OINT. TD ONE (00:30)
[2021-08-12] MEDS ORDERED: MORPHINE 4 MG INJ. 4 MG/ML VIAL IVP ONE (00:30)
[2021-08-12 01:22] LABS: BASOPHILS % (AUTO) 0.2 % (0.0-2.0); LYMPHOCYTES # (AUTO) 0.3 K/uL (1.0-5.5); MEAN CORPUSCULAR HEMOGLOBIN 33 pg (27-31); MEAN CORPUSCULAR HGB CONC 33 % (32-36); MEAN CORPUSCULAR VOLUME 101 fL (79.0-98.0); MONOCYTES # (AUTO) 0.3 K/uL (0.0-1.0); MONOCYTES % (AUTO) 3.9 % (1.7-9.3); NEUTROPHILS # (AUTO) 7.7 K/uL (1.8-7.7); NEUTROPHILS % (AUTO) 91.9 % (40.0-70.0); PLATELET COUNT (AUTO) 202 K/uL (130-430); RED CELL DISTRIBUTION WIDTH 16.3 % (9.0-15.0); WHITE BLOOD COUNT (AUTO) 8.4 K/uL (4.8-10.8)
[2021-08-12 01:37] LABS: ANION GAP 13 (5-15); CALCIUM 7.8 mg/dL (8.4-11.0); CHLORIDE 98 mmol/L (98-107); SODIUM SERUM 131 mmol/L (136-145); UREA NITROGEN, BLOOD 41 mg/dL (8-21)
[2021-08-12 01:42] LABS: ALANINE AMINOTRANSFERASE 11 U/L (12-78); ALBUMIN 2.7 g/dL (3.4-4.8); ASPARTATE AMINOTRANSFERASE 17 U/L (10-37); TOTAL BILIRUBIN 0.3 mg/dL (0.0-1.0)
[2021-08-12 02:06] LABS: HEMATOCRIT 21.1 % (36-54)
--- NOTE | 2021-08-12 02:06 | NUR ---
CRITICAL LAB VALUES READ BACK BY LAB AND ARE FOLLOWS: K+ 6.3 GLUCOSE 590 CREATININE 10.4 TROP 273 HCT 21.1 HGB 7.0
[2021-08-12 02:07] LABS: GLUCOSE 590 mg/dL (70-99); POTASSIUM 6.3 mmol/L (3.5-5.1)
[2021-08-12 02:08] LABS: CREATININE 10.04 mg/dL (0.55-1.30); GFR AFRICAN AMERICAN 7 mL/min (>90)
[2021-08-12] MEDS ORDERED: SODIUM BICARBONATE 8.4% JECT 50 MEQ/50 ML SYRINGE IVP ONE (02:15)
[2021-08-12] MEDS ORDERED: INSULIN REGULAR, HUMAN 10 UNITS/0.1 ML INJ IVP ONE (02:15)
--- NOTE | 2021-08-12 02:43 | NUR ---
Covid swab sent to lab at this time
--- NOTE | 2021-08-12 03:53 | NUR ---
Spoke to MD Castro at this time regarding new critical troponin level on the phone. aware. no new orders receiced.
--- NOTE | 2021-08-12 05:46 | NUR ---
Pt sleeping at this time. NAD. groundwater monitoring technician on. call light within reach. bed in low position. Pt remains on NC @ 2L. Respirations even and unlabored. HOB elevated to > 30 degrees. pulse oximetry monitoring.
[2021-08-12] MEDS ORDERED: DILTIAZEM HCL 120 MG CAP.SR.24H PO ONE (06:45)
[2021-08-12 07:05] LABS: BASOPHILS # (AUTO) 0.2 K/uL (0.0-0.2); BASOPHILS % (AUTO) 1.8 % (0.0-2.0); EOSINOPHILS % (AUTO) 0.5 % (0.0-4.0); HEMOGLOBIN 7.2 g/dL (14.0-18.0); LYMPHOCYTES # (AUTO) 0.6 K/uL (1.0-5.5); LYMPHOCYTES % (AUTO) 6.2 % (20.5-51.5); MEAN CORPUSCULAR HEMOGLOBIN 33 pg (27-31); MEAN CORPUSCULAR HGB CONC 34 % (32-36); MEAN CORPUSCULAR VOLUME 98 fL (79.0-98.0); MONOCYTES # (AUTO) 0.7 K/uL (0.0-1.0); MONOCYTES % (AUTO) 6.3 % (1.7-9.3); NEUTROPHILS # (AUTO) 8.9 K/uL (1.8-7.7); NEUTROPHILS % (AUTO) 85.2 % (40.0-70.0); PLATELET COUNT (AUTO) 207 K/uL (130-430); RED BLOOD CELL COUNT(AUTO) 2.15 MIL/uL (4.2-6.2); RED CELL DISTRIBUTION WIDTH 15.9 % (9.0-15.0); WHITE BLOOD COUNT (AUTO) 10.4 K/uL (4.8-10.8)
[2021-08-12 07:14] LABS: CALCIUM 7.8 mg/dL (8.4-11.0); POTASSIUM 5.1 mmol/L (3.5-5.1)
--- NOTE | 2021-08-12 07:15 | NUR ---
RECEIVED PT IN BED #6 STABLE, NAD, VSS, AAOx3, REMAINS IN NSR NOW AND WILL BE DOWNGRADED FROM ICU STATUS TO TELE. PT AWAITING DISPOSITION TO THE FLOOR AT THIS TIME.
--- NOTE | 2021-08-12 07:15 | NUR ---
IKRISHAN RN, RESUMING CARE OF PT
[2021-08-12 07:21] LABS: ALBUMIN 2.6 g/dL (3.4-4.8); TOTAL BILIRUBIN 0.3 mg/dL (0.0-1.0)
--- NOTE | 2021-08-12 07:22 | NUR ---
Admit bed requested Patient will be admitted to care of Dr. BARRETT. Admitted to TELE unit. Diagnosis [facility] Inpatient (Yes or No) Y Observation (Yes or No) N Orientation concerns or request close to nursing station (Yes or No) N Covid Status N On vent or bipap N Isolation requirements N Needs a sitter N From Home (Yes or if No enter name of facility) Y Requires Dialysis (Yes or No) Y Med Rec Completed (Yes of No) Y
[2021-08-12] MEDS ORDERED: SODIUM POLYSTYRENE SULFONATE 15 GM/60 ML UDBTL PO ONE (07:30)
[2021-08-12 07:37] LABS: CREATININE 10.35 mg/dL (0.55-1.30)
[2021-08-12] MEDS ORDERED: NALOXONE HCL 0.4 MG/ML AMP (NARCAN) IVP PRN (07:45)
[2021-08-12] MEDS ORDERED: LORazepam 2 MG/ML VIAL IVP PRN (07:45)
[2021-08-12] MEDS ORDERED: ZOLPIDEM TARTRATE 5 MG TABLET PO PRN (07:45)
[2021-08-12] MEDS ORDERED: MORPHINE 2 MG/ML INJ. SYRINGE IVP PRN ×2 (07:45)
[2021-08-12] MEDS ORDERED: HYDROcodone/ACETAMIN 5-325 MG TAB (NORCO/ VICODIN) PO PRN (07:45)
[2021-08-12] MEDS ORDERED: ONDANSETRON HCL 4 MG/2 ML VIAL IVP PRN (07:45)
[2021-08-12] MEDS ORDERED: MUPIROCIN 2% TOPICAL OINTMENT 22 GM NS PRN (07:45)
[2021-08-12] MEDS ORDERED: POTASSIUM CHLORIDE 20 MEQ TAB.PRT.SR PO PRN (07:45)
[2021-08-12] MEDS ORDERED: ACETAMINOPHEN 325 MG TABLET PO PRN ×2 (07:45→08:00)
[2021-08-12] MEDS ORDERED: DOCUSATE SODIUM 100 MG CAPSULE PO PRN (07:45)
[2021-08-12] MEDS ORDERED: MAGNESIUM SULFATE 50 ML IV PRN (07:45)
--- NOTE | 2021-08-12 08:00 | NUR ---
EKG performed at BS by RP. Physician Tanner given copy of EKG for review.
[2021-08-12] MEDS: SEVELAMER CARBONATE 800 MG TABLET PO SCH ×3 (09:18→19:09)
[2021-08-12] MEDS: ISOSORBIDE MONONITRATE 30 MG TAB.ER.24H PO SCH ×2 (09:24→21:55)
[2021-08-12] MEDS: METOPROLOL TARTRATE 50 MG TABLET PO SCH ×2 (09:27→21:00)
[2021-08-12] MEDS: FOLIC ACID 1 MG TABLET PO SCH (09:28)
[2021-08-12] MEDS: hydrALAZINE HCL 25 MG TABLET PO SCH ×3 (09:28→21:00)
[2021-08-12] MEDS: TERAZOSIN HCL 1 MG CAPSULE (HYTRIN) GT SCH ×2 (09:29→21:00)
[2021-08-12] MEDS: ASPIRIN 81 MG TAB.CHEW PO SCH (09:30)
[2021-08-12] MEDS ORDERED: GLUCOSE (DEXTROSE) ORAL GEL -Adults PO PRN (10:00)
[2021-08-12] MEDS ORDERED: DEXTROSE 50% JECT 50 ML DISP.SYRIN IVP PRN (10:00)
[2021-08-12] MEDS ORDERED: CLOPIDOGREL BISULFATE 75 MG TABLET PO ONE (10:00)
[2021-08-12] MEDS ORDERED: D5W 1,000 ML IV PRN (10:00)
--- NOTE | 2021-08-12 10:21 | NUR ---
Ultra sound at performed by Radiology dept. Pt tolerated well. Pt is repositioned and has no complaints or distress at this time. VSS. NAD
[2021-08-12] MEDS ORDERED: INSULIN REGULAR, HUMAN 10 UNITS/0.1 ML INJ ONE (14:13)
[2021-08-12] MEDS: INSULIN REGULAR, HUMAN 100 UNITS/ML, 10 ML VIAL (humuLIN R) SUBCUT PRN ×2 (14:22→22:03)
[2021-08-12] MEDS ORDERED: HEPARIN SODIUM,PORCINE 5,000 UNITS/ML VIAL ONE (16:06)
[2021-08-12] MEDS ORDERED: cefTRIAXone 1 GM in D5W 50 ML IV ONE (18:00)
--- NOTE | 2021-08-12 19:00 | NUR ---
DIALYSIS NURSE COMPLETE NOTED 2 LITERS REMOVED FROM DIALYSIS PROCEDURE. PT TOLERATED WELL.
[2021-08-12] MEDS: ATORVASTATIN 20 MG TABLET PO SCH (19:08)
--- NOTE | 2021-08-12 19:18 | NUR ---
Note: RX delayed due to Dialysis given from [id number].
--- NOTE | 2021-08-12 20:14 | NUR ---
unruly states he is full code
--- NOTE | 2021-08-12 20:25 | NUR ---
Patient will be admitted to care of . Admitted to unit. Will go to room . Belongings list completed. Complete and up to date summary report printed. SBAR report given to Amna RN bedside with opportunity for questions.
--- NOTE | 2021-08-12 20:30 | NUR ---
ADMIT NOTE Received pt from ER to the floor with a diagnosis of atrial fibrillation. Admission process initiated. Patient oriented to pain management, safety and call light-teach back done.
[2021-08-12 20:53] VITALS: BP_SYST 101
--- NOTE | 2021-08-12 22:47 | NUR ---
COMMUNICATION W/ DR. SAMI GALLARDO PAGED AT THIS TIME, IT WAS COMMUNICATED THAT UPON ADMISSION [facility], PRIMARY NURSE NOTICED THAT AM SHIFT DID NOT ORDER OR GIVE THE TWO PRBCs THAT WERE ORDERED IN THE AM TO GIVE WITH DIALYSIS. DR. GALLARDO VERBALIZED TO ORDER ONE UNIT OF PRBC TO BE GIVEN NOW, AND A FOLLOW UP CBC IN THE AM TO REASSESS. ALL ORDERS READ BACK, VERIFIED, AND WILL BE PROCESSED IMMEDIATELY.
[2021-08-12] MEDS ORDERED: cefTRIAXone 1 GM VIAL ONE (22:57)
[2021-08-13] VITALS: BP_SYST 105
[2021-08-13 00:48] LABS: CALCIUM 7.3 mg/dL (8.4-11.0); CREATININE 6.58 mg/dL (0.55-1.30); POTASSIUM 3.7 mmol/L (3.5-5.1)
--- NOTE | 2021-08-13 02:39 | NUR ---
BT INITIATION: Consent signed per PATIENT agreeing to administration of blood. Blood has been type and crossmatched. Blood sent from blood bank. Information on unit of blood checked against patient wristband at bedside by two nurses. All information matches. Patient or responsible libertarian informed of potential complications associated with blood transfusion. Informed of possible transfusion reaction symptoms. Aware of need to notify nurse at once of itching, shortness of breath, flushing, feeling of impending doom, or other symptoms not previously present. Vital signs taken within 5 minutes prior to initiation of transfusion. RN will remain with patient for first 15 minutes of transfusion at which time vital signs will be re-assessed.
--- NOTE | 2021-08-13 06:30 | NUR ---
CLOSING NOTE PATIENT TOLERATED BLOOD TRANSFUSION WELL. HE VERBALIZED NO CHEST PRESSURE OR DISCOMFORT DURING THE SHIFT. HE SLEPT WELL DURING THE NIGHT, HE REMAINED IN SINUS RHYTHM. AT THIS TIME, HE IS RESTING IN BED, STABLE, NO SIGNS OF RESPIRATORY DISTRESS. WILL CONTINUE TO MONITOR UNTIL SHIFT REPORT IS GIVEN AT BEDSIDE TO AM NURSE.
[2021-08-13 08:00] VITALS: BP_SYST 122
--- NOTE | 2021-08-13 08:00 | NUR ---
INITIAL NOTES PATIENT IN BED, RESTING. ALERT AND ORIENTED X4. DENIES ANY PAIN OR DISTRESS. PATIENT BREATHING IS EVEN AND NON LABORED. SPO2 IS 100% ON ROOM AIR. BREAKFAST IS ON TABLE, PATIENT HAS CALL LIGHT WITHIN REACH AND SAFETY PRECAUTIONS ARE IN PLACE.
[2021-08-13] MEDS: SEVELAMER CARBONATE 800 MG TABLET PO SCH ×3 (08:46→18:00)
[2021-08-13] MEDS: CLOPIDOGREL BISULFATE 75 MG TABLET PO SCH (08:46)
[2021-08-13] MEDS: ASPIRIN 81 MG TAB.CHEW PO SCH (08:46)
[2021-08-13] MEDS: hydrALAZINE HCL 25 MG TABLET PO SCH ×3 (08:47→21:15)
[2021-08-13] MEDS: FOLIC ACID 1 MG TABLET PO SCH (08:48)
[2021-08-13] MEDS: TERAZOSIN HCL 1 MG CAPSULE (HYTRIN) GT SCH ×2 (08:48→21:16)
[2021-08-13] MEDS: METOPROLOL TARTRATE 50 MG TABLET PO SCH ×2 (08:48→21:16)
[2021-08-13] MEDS ORDERED: ASPIRIN 81 MG TAB.CHEW PO SCH (09:00)
[2021-08-13 11:03] LABS: BASOPHILS # (AUTO) 0.1 K/uL (0.0-0.2); BASOPHILS % (AUTO) 0.6 % (0.0-2.0); EOSINOPHILS # (AUTO) 0.2 K/uL (0.0-0.4); EOSINOPHILS % (AUTO) 1.5 % (0.0-4.0); HEMOGLOBIN 7.1 g/dL (14.0-18.0); LYMPHOCYTES # (AUTO) 1.5 K/uL (1.0-5.5); LYMPHOCYTES % (AUTO) 14.5 % (20.5-51.5); MEAN CORPUSCULAR HEMOGLOBIN 32 pg (27-31); MEAN CORPUSCULAR HGB CONC 34 % (32-36); MEAN CORPUSCULAR VOLUME 96 fL (79.0-98.0); MONOCYTES # (AUTO) 0.4 K/uL (0.0-1.0); MONOCYTES % (AUTO) 3.8 % (1.7-9.3); NEUTROPHILS % (AUTO) 79.6 % (40.0-70.0); PLATELET COUNT (AUTO) 191 K/uL (130-430); RED BLOOD CELL COUNT(AUTO) 2.19 MIL/uL (4.2-6.2); RED CELL DISTRIBUTION WIDTH 16.4 % (9.0-15.0)
--- NOTE | 2021-08-13 11:50 | NUR ---
MD Called and spoke to Dr. Stephanie MD aware of Hgb 7.1 and Hct 21. Orders received.
[2021-08-13 12:00] VITALS: BP_SYST 99
--- NOTE | 2021-08-13 12:00 | NUR ---
Notes Patient sitting up in bed, eating dinner. No complaints of chest pain. No distress noted. No shortness of breath. Safety precautions in place and call light within reach.
[2021-08-13] MEDS: INSULIN REGULAR, HUMAN 100 UNITS/ML, 10 ML VIAL (humuLIN R) SUBCUT PRN ×3 (12:06→21:19)
--- NOTE | 2021-08-13 15:55 | NUR ---
NOTES BLOOD TRANSFUSION STARTED. VITAL SIGNS WITHIN RANGE. AFEBRILE. PATIENT DENIES ANY PAIN OR DISCOMFORT. PATIENT IS RESTING IN BED, HOB ELEVATED. WILL CONTINUE TO MONITOR.
[2021-08-13 16:00] VITALS: BP_SYST 106
--- NOTE | 2021-08-13 16:25 | NUR ---
HIGH ALERT NOTE: Called Dr. GALLARDO back AND identified within the medical roster to verify physician authenticity.
--- NOTE | 2021-08-13 16:30 | NUR ---
NOTES DIALYSIS NURSE HERE, PATIENT TO HAVE DIALYSIS NOW. PATIENT DOES NOT COMPLAIN OF ANY PAIN. AFEBRILE, VITAL SIGNS WITHIN RANGE. NO DISTRESS NOTED.
[2021-08-13] MEDS ORDERED: HEPARIN SODIUM,PORCINE 5,000 UNITS/ML VIAL MC ONE (17:00)
[2021-08-13] MEDS: ATORVASTATIN 20 MG TABLET PO SCH (18:00)
--- NOTE | 2021-08-13 19:00 | NUR ---
CLOSING NOTES PATIENT FINISHED DIALYSIS & BLOOD TRANSFUSION COMPLETE,. PATIENT IS EATING DINNER. OUTPUT WAS 2L. PATIENTS VITALS WITHIN RANGE. AFEBRILE. PATIENT DENIES ANY PAIN. NO DISTRESS NOTED. SAFETY PRECAUTIONS IN PLACE AND CALL LIGHT WITHIN REACH. REPORT GIVEN TO INCOMING NURSE.
[2021-08-13 19:30] VITALS: BP_SYST 133
--- NOTE | 2021-08-13 19:30 | NUR ---
Initial note At initial assessment, patient is resting in bed, stable, no signs of respiratory distress. Patient verbalizes no pain. Plan of care for the evening is communicated with the patient. Patient demonstrates correct usage of call light at this time. Bed is locked, alarmed, and at the lowest level. Fall safety education provided. Fall, safety, and respiratory precautions will be taken throughout the shift.
[2021-08-14 00:52] VITALS: BP_SYST 119
--- NOTE | 2021-08-14 06:45 | NUR ---
Closing note Patient verbalized no chest pressure or pain during the night. Blood sugar check at this time requires insulin coverage per ssi ordered by md. He slept well. At this time, patient is resting in bed, stale, no sign of respiratory distress. Call light placed within reach. Bed is locked, alarmed, and at the lowest level. Will continue to monitor until shift report is given at bedside to AM nurse.
--- NOTE | 2021-08-14 07:32 | NUR ---
Received patient in bed resting comfortably, AAOX4. Patient presents calm and cooperative. No s/sx of pain or discomfort. Respirations are non-labored. Skin is clean, warm and dry to touch. IV access is patent, secure, no s/sx of redness or swelling observed. Bed is locked in lowest position, call light in reach. Nurse will continue care and monitor for changes in status.
[2021-08-14 07:44] LABS: CALCIUM 7.4 mg/dL (8.4-11.0); CREATININE 6.84 mg/dL (0.55-1.30); POTASSIUM 3.7 mmol/L (3.5-5.1)
[2021-08-14 07:52] LABS: BASOPHILS # (AUTO) 0.4 K/uL (0.0-0.2); EOSINOPHILS # (AUTO) 0.2 K/uL (0.0-0.4); EOSINOPHILS % (AUTO) 2.4 % (0.0-4.0); HEMATOCRIT 29.8 % (36-54); HEMOGLOBIN 10.3 g/dL (14.0-18.0); LYMPHOCYTES # (AUTO) 0.9 K/uL (1.0-5.5); LYMPHOCYTES % (AUTO) 11.5 % (20.5-51.5); MEAN CORPUSCULAR HEMOGLOBIN 32 pg (27-31); MEAN CORPUSCULAR HGB CONC 35 % (32-36); MONOCYTES # (AUTO) 0.3 K/uL (0.0-1.0); MONOCYTES % (AUTO) 4.2 % (1.7-9.3); NEUTROPHILS # (AUTO) 6.1 K/uL (1.8-7.7); NEUTROPHILS % (AUTO) 76.9 % (40.0-70.0); PLATELET COUNT (AUTO) 192 K/uL (130-430); RED BLOOD CELL COUNT(AUTO) 3.22 MIL/uL (4.2-6.2); RED CELL DISTRIBUTION WIDTH 16.2 % (9.0-15.0)
[2021-08-14] MEDS: SEVELAMER CARBONATE 800 MG TABLET PO SCH ×2 (08:00→11:30)
[2021-08-14 08:04] LABS: ALBUMIN 2.1 g/dL (3.4-4.8); TOTAL BILIRUBIN 0.6 mg/dL (0.0-1.0)
[2021-08-14 08:37] VITALS: BP_SYST 123
[2021-08-14] MEDS ORDERED: EPOETIN ALFA 10,000 UNITS/ML VIAL SUBCUT ONE (09:00)
[2021-08-14] MEDS: hydrALAZINE HCL 25 MG TABLET PO SCH (09:39)
[2021-08-14] MEDS: ASPIRIN 81 MG TAB.CHEW PO SCH (09:39)
[2021-08-14] MEDS: METOPROLOL TARTRATE 50 MG TABLET PO SCH (09:39)
[2021-08-14] MEDS: FOLIC ACID 1 MG TABLET PO SCH (09:39)
[2021-08-14] MEDS: TERAZOSIN HCL 1 MG CAPSULE (HYTRIN) GT SCH (09:39)
[2021-08-14] MEDS: CLOPIDOGREL BISULFATE 75 MG TABLET PO SCH (09:40)
[2021-08-14 10:29] LABS: MEAN CORPUSCULAR VOLUME 93 fL (79.0-98.0)
--- NOTE | 2021-08-14 12:12 | NUR ---
Patient in bed resting comfortably. No s/sx of pain or discomfort. Respirations are non-labored. Skin is clean, warm and dry to touch. IV access is patent, secure, no s/sx of redness or swelling observed. Patient is medication compliant, no s/sx of adverse affects reported or observed. Bed is locked in lowest position, call light in reach. Nurse will continue care and monitor for changes in status.
[2021-08-14 12:34] VITALS: BP_SYST 141
--- NOTE | 2021-08-14 14:52 | NUR ---
Patient and family given discharge and follow up instructions. Patient verbalizes understanding. No s/sx of pain or discomfort. Respirations are non-labored. Skin is clean, warm and dry to touch. IV access discontinued, No s/sx of redness or swelling observed. Patient escorted to vehicle via wheel chair with all his personal belongings.
== END 2021-08-14 14:25 | disposition home or self-care (01) | DRG 280 ==
LOC: SED 00:04 → SIC 03:17 → STU 08:15
PROVIDERS: ADMIT Family Medicine; ATTEND Family Medicine
PROC: 5A1D70Z Performance of Urinary Filtration, Intermittent, Less than 6 Hours Per Day (ICD-10-PCS; principal; 2021-08-12)
PROC: 5A1D70Z Performance of Urinary Filtration, Intermittent, Less than 6 Hours Per Day (ICD-10-PCS; 2021-08-13)
PROC: 30233N1 Transfusion of Nonautologous Red Blood Cells into Peripheral Vein, Percutaneous Approach (ICD-10-PCS; 2021-08-13)
DX: I48.91 Unspecified atrial fibrillation (principal); N17.0 Acute kidney failure with tubular necrosis; I21.A1 Myocardial infarction type 2; N18.6 End stage renal disease; E43 Unspecified severe protein-calorie malnutrition; I12.0 Hypertensive chronic kidney disease with stage 5 chronic kidney disease or end stage renal disease; D64.9 Anemia, unspecified; E11.22 Type 2 diabetes mellitus with diabetic chronic kidney disease; E11.65 Type 2 diabetes mellitus with hyperglycemia; E87.5 Hyperkalemia; I25.10 Atherosclerotic heart disease of native coronary artery without angina pectoris; E11.51 Type 2 diabetes mellitus with diabetic peripheral angiopathy without gangrene; Z20.822 Contact with and (suspected) exposure to COVID-19; E66.9 Obesity, unspecified; Z68.28 Body mass index [BMI] 28.0-28.9, adult; I25.2 Old myocardial infarction; Z79.4 Long term (current) use of insulin; Z86.73 Personal history of transient ischemic attack (TIA), and cerebral infarction without residual deficits; Z95.5 Presence of coronary angioplasty implant and graft; Z79.899 Other long term (current) drug therapy; Z99.2 Dependence on renal dialysis
CPT/HCPCS: 36415; 71045; 80048; 80053; 82962; 83690; 83735; 83880; 84484; 85025; 86886; 86900; 86901; 86920; 87081; 90935; 90937; 93005; 93306; 96374; 96375; 96376; 99291; G0378; J0696; J0885; J1644; J1815; J2270; J3490; J7060; P9021

== ENCOUNTER 2022-03-31 18:01 | Inpatient (IN) | payer OTHER ==
[~2022-03-31] VITALS: Ht 172.7 cm; Wt 85.7 kg
[~2022-03-31 18:01] MED LIST changes: -EPOE1VIA13 SUBCUT; +GLIP5TAB13 PO; -HYDR-3917 PO; -HYT1 PO; -IRON1CAP17 PO; -LIP40 PO; +PRED10TA PO; -[UNRECOGNIZED DRUG - CODE] IJ
[2022-03-31 18:11] VITALS: BP_SYST 172
[2022-03-31 19:58] LABS: HEMATOCRIT 28.6 % (36-54); HEMOGLOBIN 9.1 g/dL (14.0-18.0); LYMPHOCYTES # (AUTO) 0.6 K/uL (1.0-5.5); LYMPHOCYTES % (AUTO) 7.3 % (20.5-51.5); MEAN CORPUSCULAR HEMOGLOBIN 36 pg (27-31); MEAN CORPUSCULAR HGB CONC 32 % (32-36); MEAN CORPUSCULAR VOLUME 112 fL (79.0-98.0); MONOCYTES # (AUTO) 0.8 K/uL (0.0-1.0); MONOCYTES % (AUTO) 10.1 % (1.7-9.3); NEUTROPHILS # (AUTO) 6.6 K/uL (1.8-7.7); NEUTROPHILS % (AUTO) 82.6 % (40.0-70.0); RED BLOOD CELL COUNT(AUTO) 2.55 MIL/uL (4.2-6.2); RED CELL DISTRIBUTION WIDTH 20.3 % (9.0-15.0)
[2022-03-31 20:16] LABS: PLATELET COUNT (AUTO) 44 K/uL (130-430)
[2022-03-31 20:20] LABS: INR 1.2 (0.80-1.20); PROTHROMBIN TIME 12.3 SECS (9.5-12.5)
[2022-03-31 20:22] LABS: ANION GAP 12 (5-15); CALCIUM 8.5 mg/dL (8.4-11.0); CHLORIDE 91 mmol/L (98-107); UREA NITROGEN, BLOOD 92 mg/dL (8-21)
[2022-03-31 20:27] LABS: ALANINE AMINOTRANSFERASE 338 U/L (12-78); ALBUMIN 2.6 g/dL (3.4-4.8); ASPARTATE AMINOTRANSFERASE 55 U/L (10-37); TOTAL BILIRUBIN 1.4 mg/dL (0.0-1.0)
[2022-03-31 20:30] LABS: GFR AFRICAN AMERICAN 8 mL/min (>90)
[2022-03-31 20:40] LABS: CREATININE 8.79 mg/dL (0.55-1.30)
[2022-03-31 20:47] LABS: GLUCOSE 854 mg/dL (70-99)
[2022-03-31] MEDS ORDERED: INSULIN REGULAR, HUMAN 10 UNITS/0.1 ML, 3 ML VIAL IVP ONE (21:30)
[2022-03-31 23:15] VITALS: BP_SYST 166
[2022-04-01] MEDS ORDERED: ONDANSETRON HCL 4 MG/2 ML VIAL IVP PRN ×2 (01:00→09:15)
[2022-04-01] MEDS ORDERED: D5W 1,000 ML IV PRN (01:00)
[2022-04-01] MEDS ORDERED: ACETAMINOPHEN 325 MG TABLET PO PRN ×2 (01:00→09:15)
[2022-04-01] MEDS ORDERED: SODIUM POLYSTYRENE SULFONATE 15 GM/60 ML UDBTL PO ONE (01:00)
[2022-04-01] MEDS ORDERED: traMADol HCL HCL 50 MG TABLET (ULTRAM) PO PRN (01:30)
[2022-04-01] MEDS: NACL 0.9% 1,000 ML IV SCH ×2 (01:50→12:09)
[2022-04-01] MEDS: cloNIDine HCL 0.2 MG TABLET PO PRN ×2 (01:52→05:57)
[2022-04-01] MEDS: traZODone HCL 50 MG TABLET (DESYREL) PO PRN (01:52)
[2022-04-01] MEDS: INSULIN REGULAR, HUMAN 100 UNITS/ML, 3 ML VIAL (humuLIN R) SUBCUT PRN ×4 (01:55→20:55)
[2022-04-01 05:45] VITALS: BP_SYST 156
[2022-04-01 08:00] VITALS: BP_SYST 160
[2022-04-01] MEDS ORDERED: HYDROcodone/ACETAMIN 5-325 MG TAB (NORCO/ VICODIN) PO PRN (09:15)
[2022-04-01] MEDS ORDERED: HYDROcodone/ACETAMIN 10-325 MG TAB PO PRN (09:15)
[2022-04-01] MEDS ORDERED: NALOXONE HCL 0.4 MG/ML AMP (NARCAN) IVP PRN (09:15)
[2022-04-01] MEDS ORDERED: ASPIRIN 81 MG TAB.CHEW PO ONE (09:15)
[2022-04-01] MEDS ORDERED: FOLIC ACID 1 MG TABLET PO ONE (09:30)
[2022-04-01] MEDS ORDERED: cloNIDine HCL 0.1 MG TABLET PO PRN (09:30)
[2022-04-01 10:05] LABS: BASOPHILS % (AUTO) 0.1 % (0.0-2.0); EOSINOPHILS % (AUTO) 0.3 % (0.0-4.0); HEMATOCRIT 26.2 % (36-54); HEMOGLOBIN 8.8 g/dL (14.0-18.0); LYMPHOCYTES # (AUTO) 1.2 K/uL (1.0-5.5); LYMPHOCYTES % (AUTO) 16.6 % (20.5-51.5); MEAN CORPUSCULAR HEMOGLOBIN 36 pg (27-31); MEAN CORPUSCULAR HGB CONC 33 % (32-36); MEAN CORPUSCULAR VOLUME 106 fL (79.0-98.0); MONOCYTES # (AUTO) 0.7 K/uL (0.0-1.0); MONOCYTES % (AUTO) 10.4 % (1.7-9.3); NEUTROPHILS # (AUTO) 5.1 K/uL (1.8-7.7); NEUTROPHILS % (AUTO) 72.6 % (40.0-70.0); PLATELET COUNT (AUTO) 50 K/uL (130-430); RED BLOOD CELL COUNT(AUTO) 2.47 MIL/uL (4.2-6.2); RED CELL DISTRIBUTION WIDTH 18.8 % (9.0-15.0)
[2022-04-01 10:07] LABS: CALCIUM 8.3 mg/dL (8.4-11.0)
[2022-04-01 10:11] LABS: CREATININE 9.51 mg/dL (0.55-1.30)
[2022-04-01 11:26] VITALS: BP_SYST 99
[2022-04-01] MEDS ORDERED: CALCIUM ACETATE PO SCH (12:00)
[2022-04-01] MEDS: CALCIUM ACETATE 667 MG CAP PO SCH ×2 (12:08→20:34)
[2022-04-01] MEDS: SEVELAMER CARBONATE 800 MG TABLET PO SCH ×2 (12:09→20:34)
[2022-04-01] MEDS ORDERED: NORMAL SALINE 5 ML DISP.SYRIN IVF SCH (14:00)
[2022-04-01] MEDS ORDERED: hydrALAZINE HCL 25 MG TABLET PO SCH (15:00)
[2022-04-01 15:14] VITALS: BP_SYST 97
[2022-04-01] MEDS: NORMAL SALINE 5 ML DISP.SYRIN IVF SCH ×2 (15:24→22:03)
[2022-04-01 20:00] VITALS: BP_SYST 113
[2022-04-01] MEDS: TERAZOSIN HCL 1 MG CAPSULE (HYTRIN) PO SCH (20:43)
[2022-04-01] MEDS: hydrALAZINE HCL 25 MG TABLET PO SCH (20:43)
[2022-04-01] MEDS: METOPROLOL TARTRATE 50 MG TABLET PO SCH (20:44)
[2022-04-01] MEDS: ISOSORBIDE MONONITRATE 30 MG TAB.ER.24H PO SCH (20:44)
[2022-04-01] MEDS ORDERED: METOPROLOL TARTRATE 150 MG PO SCH (21:00)
[2022-04-01 23:55] VITALS: BP_SYST 113
[2022-04-02 00:29] VITALS: BP_SYST 128
[2022-04-02] MEDS: NORMAL SALINE 5 ML DISP.SYRIN IVF SCH ×3 (06:10→21:25)
[2022-04-02] MEDS: DEXTROSE 50% JECT 50 ML DISP.SYRIN IVP PRN (06:16)
[2022-04-02 06:47] LABS: BASOPHILS % (AUTO) 0.1 % (0.0-2.0); EOSINOPHILS # (AUTO) 0.1 K/uL (0.0-0.4); EOSINOPHILS % (AUTO) 1.6 % (0.0-4.0); HEMATOCRIT 28.2 % (36-54); HEMOGLOBIN 9.5 g/dL (14.0-18.0); LYMPHOCYTES # (AUTO) 1.5 K/uL (1.0-5.5); LYMPHOCYTES % (AUTO) 16.6 % (20.5-51.5); MEAN CORPUSCULAR HEMOGLOBIN 36 pg (27-31); MEAN CORPUSCULAR HGB CONC 34 % (32-36); MEAN CORPUSCULAR VOLUME 106 fL (79.0-98.0); NEUTROPHILS # (AUTO) 6.5 K/uL (1.8-7.7); NEUTROPHILS % (AUTO) 70.7 % (40.0-70.0); PLATELET COUNT (AUTO) 72 K/uL (130-430); RED BLOOD CELL COUNT(AUTO) 2.67 MIL/uL (4.2-6.2); RED CELL DISTRIBUTION WIDTH 18.8 % (9.0-15.0); WHITE BLOOD COUNT (AUTO) 9.2 K/uL (4.8-10.8)
[2022-04-02 07:09] LABS: CALCIUM 8.6 mg/dL (8.4-11.0); CREATININE 6.49 mg/dL (0.55-1.30); PHOSPHORUS 4.9 mg/dL (2.7-4.5)
[2022-04-02 07:44] VITALS: BP_SYST 171
[2022-04-02] MEDS: SEVELAMER CARBONATE 800 MG TABLET PO SCH ×3 (08:00→17:12)
[2022-04-02] MEDS: CALCIUM ACETATE 667 MG CAP PO SCH ×3 (08:00→17:08)
[2022-04-02 08:40] LABS: TOTAL IRON BIND. CAPACITY 204 ug/dL (250-450)
[2022-04-02 08:45] LABS: ACETAMINOPHEN < 1 ug/mL (1-30)
[2022-04-02 11:22] VITALS: BP_SYST 133
[2022-04-02] MEDS: ASPIRIN 81 MG TAB.CHEW PO SCH (12:11)
[2022-04-02] MEDS: hydrALAZINE HCL 25 MG TABLET PO SCH ×2 (12:12→20:14)
[2022-04-02] MEDS: predniSONE 10 MG TABLET PO SCH (12:12)
[2022-04-02] MEDS: ISOSORBIDE MONONITRATE 30 MG TAB.ER.24H PO SCH ×2 (12:12→20:13)
[2022-04-02] MEDS: FOLIC ACID 1 MG TABLET PO SCH (12:13)
[2022-04-02] MEDS: METOPROLOL TARTRATE 50 MG TABLET PO SCH ×2 (12:13→20:14)
[2022-04-02] MEDS: TERAZOSIN HCL 1 MG CAPSULE (HYTRIN) PO SCH ×2 (12:14→20:15)
[2022-04-02] MEDS: INSULIN REGULAR, HUMAN 100 UNITS/ML, 3 ML VIAL (humuLIN R) SUBCUT PRN ×2 (12:26→17:10)
[2022-04-02 15:21] VITALS: BP_SYST 114
[2022-04-02 20:00] VITALS: BP_SYST 139
[2022-04-03] MEDS: traZODone HCL 50 MG TABLET (DESYREL) PO PRN (00:08)
[2022-04-03 00:38] VITALS: BP_SYST 114
[2022-04-03] MEDS: NORMAL SALINE 5 ML DISP.SYRIN IVF SCH ×3 (06:00→20:59)
[2022-04-03 07:14] LABS: BASOPHILS % (AUTO) 0.2 % (0.0-2.0); EOSINOPHILS # (AUTO) 0.1 K/uL (0.0-0.4); HEMATOCRIT 24.7 % (36-54); HEMOGLOBIN 8.2 g/dL (14.0-18.0); LYMPHOCYTES # (AUTO) 1.3 K/uL (1.0-5.5); LYMPHOCYTES % (AUTO) 18.4 % (20.5-51.5); MEAN CORPUSCULAR HEMOGLOBIN 35 pg (27-31); MEAN CORPUSCULAR HGB CONC 33 % (32-36); MEAN CORPUSCULAR VOLUME 106 fL (79.0-98.0); MONOCYTES # (AUTO) 0.6 K/uL (0.0-1.0); MONOCYTES % (AUTO) 8.6 % (1.7-9.3); NEUTROPHILS % (AUTO) 70.8 % (40.0-70.0); PLATELET COUNT (AUTO) 64 K/uL (130-430); RED BLOOD CELL COUNT(AUTO) 2.33 MIL/uL (4.2-6.2); RED CELL DISTRIBUTION WIDTH 18.5 % (9.0-15.0)
[2022-04-03 07:22] LABS: INR 1.1 (0.80-1.20); PROTHROMBIN TIME 10.9 SECS (9.5-12.5)
[2022-04-03 07:49] LABS: ALBUMIN 1.9 g/dL (3.4-4.8); BILIRUBIN,DIRECT 0.7 mg/dL (0.0-0.3); CALCIUM 8.3 mg/dL (8.4-11.0); CREATININE 7.23 mg/dL (0.55-1.30); PHOSPHORUS 4.9 mg/dL (2.7-4.5); TOTAL BILIRUBIN 1.1 mg/dL (0.0-1.0)
[2022-04-03 09:07] LABS: ANTI NUCLEAR AB WITH REFLEX Negative (Negative)
[2022-04-03] MEDS ORDERED: HYDR-4038 PO (09:33)
[2022-04-03 10:06] LABS: ALPHA-1-ANTITRYPSIN, S 128 mg/dL (101-187)
[2022-04-03] MEDS: ASPIRIN 81 MG TAB.CHEW PO SCH (10:18)
[2022-04-03] MEDS: FOLIC ACID 1 MG TABLET PO SCH (10:18)
[2022-04-03] MEDS: CALCIUM ACETATE 667 MG CAP PO SCH ×3 (10:18→17:38)
[2022-04-03] MEDS: hydrALAZINE HCL 25 MG TABLET PO SCH ×2 (10:18→20:57)
[2022-04-03] MEDS: ISOSORBIDE MONONITRATE 30 MG TAB.ER.24H PO SCH ×2 (10:19→20:57)
[2022-04-03] MEDS: SEVELAMER CARBONATE 800 MG TABLET PO SCH ×3 (10:19→17:38)
[2022-04-03] MEDS: METOPROLOL TARTRATE 50 MG TABLET PO SCH ×2 (10:19→20:56)
[2022-04-03] MEDS: TERAZOSIN HCL 1 MG CAPSULE (HYTRIN) PO SCH ×2 (10:20→20:56)
[2022-04-03] MEDS: predniSONE 10 MG TABLET PO SCH (10:20)
[2022-04-03 11:17] VITALS: BP_SYST 157
[2022-04-03] MEDS: INSULIN REGULAR, HUMAN 100 UNITS/ML, 3 ML VIAL (humuLIN R) SUBCUT PRN ×3 (12:39→21:39)
[2022-04-03 14:33] LABS: FERRITIN 2868 ng/mL (30-400)
[2022-04-03 15:22] VITALS: BP_SYST 126
[2022-04-03 15:43] VITALS: BP_SYST 143
[2022-04-03] MEDS ORDERED: EPOETIN ALFA 10,000 UNITS/ML VIAL SUBCUT ONE (18:45)
[2022-04-03 20:00] VITALS: BP_SYST 123
[2022-04-03 23:55] VITALS: BP_SYST 133
[2022-04-04 03:06] LABS: HEPATITIS A AB, IgM Negative (Negative); HEPATITIS B CORE AB, IgM Negative (Negative); HEPATITIS B SURFACE AG Negative (Negative)
[2022-04-04 05:16] VITALS: BP_SYST 133
[2022-04-04] MEDS: NORMAL SALINE 5 ML DISP.SYRIN IVF SCH ×3 (06:00→22:00)
[2022-04-04 06:27] LABS: BASOPHILS % (AUTO) 0.5 % (0.0-2.0); EOSINOPHILS # (AUTO) 0.2 K/uL (0.0-0.4); EOSINOPHILS % (AUTO) 2.5 % (0.0-4.0); HEMATOCRIT 22.4 % (36-54); HEMOGLOBIN 7.7 g/dL (14.0-18.0); LYMPHOCYTES # (AUTO) 1.4 K/uL (1.0-5.5); MEAN CORPUSCULAR HEMOGLOBIN 35 pg (27-31); MEAN CORPUSCULAR HGB CONC 35 % (32-36); MEAN CORPUSCULAR VOLUME 103 fL (79.0-98.0); MONOCYTES # (AUTO) 0.5 K/uL (0.0-1.0); MONOCYTES % (AUTO) 7.1 % (1.7-9.3); NEUTROPHILS # (AUTO) 5.5 K/uL (1.8-7.7); NEUTROPHILS % (AUTO) 71.9 % (40.0-70.0); PLATELET COUNT (AUTO) 68 K/uL (130-430); RED BLOOD CELL COUNT(AUTO) 2.18 MIL/uL (4.2-6.2); RED CELL DISTRIBUTION WIDTH 18.2 % (9.0-15.0); WHITE BLOOD COUNT (AUTO) 7.7 K/uL (4.8-10.8)
[2022-04-04 07:23] LABS: ALBUMIN 1.9 g/dL (3.4-4.8); CALCIUM 8.3 mg/dL (8.4-11.0); PHOSPHORUS 5.4 mg/dL (2.7-4.5); TOTAL BILIRUBIN 0.8 mg/dL (0.0-1.0)
[2022-04-04 07:26] LABS: CREATININE 8.96 mg/dL (0.55-1.30)
[2022-04-04] MEDS: TERAZOSIN HCL 1 MG CAPSULE (HYTRIN) PO SCH ×2 (08:37→20:40)
[2022-04-04] MEDS: ISOSORBIDE MONONITRATE 30 MG TAB.ER.24H PO SCH ×2 (08:38→20:40)
[2022-04-04] MEDS: hydrALAZINE HCL 25 MG TABLET PO SCH ×2 (08:38→20:40)
[2022-04-04] MEDS: CALCIUM ACETATE 667 MG CAP PO SCH ×3 (08:39→17:25)
[2022-04-04] MEDS: ASPIRIN 81 MG TAB.CHEW PO SCH (08:39)
[2022-04-04] MEDS: METOPROLOL TARTRATE 50 MG TABLET PO SCH ×2 (08:39→20:39)
[2022-04-04] MEDS: predniSONE 10 MG TABLET PO SCH (08:40)
[2022-04-04] MEDS: SEVELAMER CARBONATE 800 MG TABLET PO SCH ×3 (08:40→17:26)
[2022-04-04] MEDS: FOLIC ACID 1 MG TABLET PO SCH (08:40)
[2022-04-04 11:38] VITALS: BP_SYST 138
[2022-04-04] MEDS: INSULIN REGULAR, HUMAN 100 UNITS/ML, 3 ML VIAL (humuLIN R) SUBCUT PRN ×2 (11:50→20:35)
[2022-04-04 15:22] VITALS: BP_SYST 173
[2022-04-04 20:00] VITALS: BP_SYST 152
[2022-04-05 00:40] VITALS: BP_SYST 134
[2022-04-05] MEDS: NORMAL SALINE 5 ML DISP.SYRIN IVF SCH ×3 (06:00→20:58)
[2022-04-05 06:10] LABS: BASOPHILS % (AUTO) 0.4 % (0.0-2.0); EOSINOPHILS % (AUTO) 2.2 % (0.0-4.0); HEMATOCRIT 24.3 % (36-54); HEMOGLOBIN 8.2 g/dL (14.0-18.0); LYMPHOCYTES % (AUTO) 20.2 % (20.5-51.5); MEAN CORPUSCULAR HEMOGLOBIN 36 pg (27-31); MEAN CORPUSCULAR HGB CONC 34 % (32-36); MEAN CORPUSCULAR VOLUME 106 fL (79.0-98.0); NEUTROPHILS # (AUTO) 5.3 K/uL (1.8-7.7); NEUTROPHILS % (AUTO) 67.2 % (40.0-70.0); PLATELET COUNT (AUTO) 80 K/uL (130-430); RED CELL DISTRIBUTION WIDTH 18.9 % (9.0-15.0); WHITE BLOOD COUNT (AUTO) 7.9 K/uL (4.8-10.8)
[2022-04-05 06:11] LABS: EOSINOPHILS # (AUTO) 0.2 K/uL (0.0-0.4); LYMPHOCYTES # (AUTO) 1.6 K/uL (1.0-5.5); MONOCYTES # (AUTO) 0.8 K/uL (0.0-1.0)
[2022-04-05 06:31] LABS: CALCIUM 8.3 mg/dL (8.4-11.0); CREATININE 6.42 mg/dL (0.55-1.30); PHOSPHORUS 5.2 mg/dL (2.7-4.5)
[2022-04-05 07:30] VITALS: BP_SYST 150
[2022-04-05 08:06] LABS: ANTI-SMOOTH MUSCLE AB 5 Units (0-19); LIVER-KIDNEY MICROSOMAL AB 0.9 Units (0.0-20.0)
[2022-04-05] MEDS: CALCIUM ACETATE 667 MG CAP PO SCH ×3 (08:08→17:11)
[2022-04-05] MEDS: SEVELAMER CARBONATE 800 MG TABLET PO SCH ×3 (08:09→17:11)
[2022-04-05] MEDS: hydrALAZINE HCL 25 MG TABLET PO SCH ×2 (08:09→20:57)
[2022-04-05] MEDS: METOPROLOL TARTRATE 50 MG TABLET PO SCH ×2 (08:10→20:57)
[2022-04-05] MEDS: predniSONE 10 MG TABLET PO SCH (08:10)
[2022-04-05] MEDS: TERAZOSIN HCL 1 MG CAPSULE (HYTRIN) PO SCH ×2 (08:10→20:57)
[2022-04-05] MEDS: FOLIC ACID 1 MG TABLET PO SCH (08:11)
[2022-04-05] MEDS: ISOSORBIDE MONONITRATE 30 MG TAB.ER.24H PO SCH ×2 (08:11→20:56)
[2022-04-05] MEDS: ASPIRIN 81 MG TAB.CHEW PO SCH (08:11)
[2022-04-05] MEDS ORDERED: REGADENOSON 0.4 MG/5 ML SYRINGE IVP ONE (09:30)
[2022-04-05 11:22] VITALS: BP_SYST 129
[2022-04-05 16:38] VITALS: BP_SYST 141
[2022-04-05] MEDS: INSULIN REGULAR, HUMAN 100 UNITS/ML, 3 ML VIAL (humuLIN R) SUBCUT PRN ×2 (16:47→20:45)
[2022-04-05 20:00] VITALS: BP_SYST 120
[2022-04-05] MEDS: traZODone HCL 50 MG TABLET (DESYREL) PO PRN (20:56)
[2022-04-05] MEDS: INSULIN GLARGINE 100 UNITS/ML, 10 ML VIAL SUBCUT SCH (21:44)
[2022-04-06 00:28] VITALS: BP_SYST 138
[2022-04-06] MEDS: NORMAL SALINE 5 ML DISP.SYRIN IVF SCH ×3 (05:08→20:48)
[2022-04-06 06:14] LABS: BASOPHILS % (AUTO) 0.4 % (0.0-2.0); EOSINOPHILS # (AUTO) 0.2 K/uL (0.0-0.4); EOSINOPHILS % (AUTO) 1.9 % (0.0-4.0); HEMOGLOBIN 8.1 g/dL (14.0-18.0); LYMPHOCYTES # (AUTO) 1.5 K/uL (1.0-5.5); LYMPHOCYTES % (AUTO) 17.4 % (20.5-51.5); MEAN CORPUSCULAR HEMOGLOBIN 36 pg (27-31); MEAN CORPUSCULAR HGB CONC 34 % (32-36); MEAN CORPUSCULAR VOLUME 105 fL (79.0-98.0); MONOCYTES # (AUTO) 0.9 K/uL (0.0-1.0); MONOCYTES % (AUTO) 10.1 % (1.7-9.3); NEUTROPHILS % (AUTO) 70.2 % (40.0-70.0); PLATELET COUNT (AUTO) 90 K/uL (130-430); RED BLOOD CELL COUNT(AUTO) 2.28 MIL/uL (4.2-6.2); RED CELL DISTRIBUTION WIDTH 18.6 % (9.0-15.0); WHITE BLOOD COUNT (AUTO) 8.5 K/uL (4.8-10.8)
[2022-04-06] MEDS: GLUCOSE (DEXTROSE) ORAL GEL -Adults PO PRN (06:30)
[2022-04-06 07:01] LABS: CALCIUM 8.7 mg/dL (8.4-11.0); PHOSPHORUS 5.8 mg/dL (2.7-4.5)
[2022-04-06 07:21] LABS: CREATININE 8.46 mg/dL (0.55-1.30)
[2022-04-06 07:25] VITALS: BP_SYST 153
[2022-04-06] MEDS: ASPIRIN 81 MG TAB.CHEW PO SCH (08:19)
[2022-04-06] MEDS: SEVELAMER CARBONATE 800 MG TABLET PO SCH ×3 (08:19→17:30)
[2022-04-06] MEDS: predniSONE 10 MG TABLET PO SCH (08:19)
[2022-04-06] MEDS: FOLIC ACID 1 MG TABLET PO SCH (08:19)
[2022-04-06] MEDS: CALCIUM ACETATE 667 MG CAP PO SCH ×3 (08:19→17:30)
[2022-04-06 11:24] VITALS: BP_SYST 128
[2022-04-06] MEDS: INSULIN REGULAR, HUMAN 100 UNITS/ML, 3 ML VIAL (humuLIN R) SUBCUT PRN ×2 (12:01→17:34)
[2022-04-06 15:20] VITALS: BP_SYST 105
[2022-04-06] MEDS: TERAZOSIN HCL 1 MG CAPSULE (HYTRIN) PO SCH ×2 (17:31→20:44)
[2022-04-06] MEDS: METOPROLOL TARTRATE 50 MG TABLET PO SCH ×2 (17:31→20:47)
[2022-04-06] MEDS: ISOSORBIDE MONONITRATE 30 MG TAB.ER.24H PO SCH ×2 (17:31→20:43)
[2022-04-06] MEDS: hydrALAZINE HCL 25 MG TABLET PO SCH ×2 (17:32→20:46)
[2022-04-06 20:20] VITALS: BP_SYST 120
[2022-04-06] MEDS: traZODone HCL 50 MG TABLET (DESYREL) PO PRN (20:45)
[2022-04-06] MEDS: INSULIN GLARGINE 100 UNITS/ML, 10 ML VIAL SUBCUT SCH (20:59)
[2022-04-06] MEDS ORDERED: hydrALAZINE HCL 25 MG TABLET PO SCH (21:00)
[2022-04-07 00:20] VITALS: BP_SYST 109
[2022-04-07] MEDS: NORMAL SALINE 5 ML DISP.SYRIN IVF SCH (05:08)
[2022-04-07 06:24] LABS: BASOPHILS # (AUTO) 0.1 K/uL (0.0-0.2); EOSINOPHILS # (AUTO) 0.1 K/uL (0.0-0.4); EOSINOPHILS % (AUTO) 1.3 % (0.0-4.0); HEMATOCRIT 24.3 % (36-54); HEMOGLOBIN 8.3 g/dL (14.0-18.0); LYMPHOCYTES # (AUTO) 1.3 K/uL (1.0-5.5); LYMPHOCYTES % (AUTO) 19.6 % (20.5-51.5); MEAN CORPUSCULAR HEMOGLOBIN 36 pg (27-31); MEAN CORPUSCULAR HGB CONC 34 % (32-36); MEAN CORPUSCULAR VOLUME 104 fL (79.0-98.0); MONOCYTES # (AUTO) 0.7 K/uL (0.0-1.0); NEUTROPHILS # (AUTO) 4.7 K/uL (1.8-7.7); NEUTROPHILS % (AUTO) 68.1 % (40.0-70.0); PLATELET COUNT (AUTO) 73 K/uL (130-430); RED BLOOD CELL COUNT(AUTO) 2.34 MIL/uL (4.2-6.2); RED CELL DISTRIBUTION WIDTH 18.3 % (9.0-15.0); WHITE BLOOD COUNT (AUTO) 6.9 K/uL (4.8-10.8)
[2022-04-07] MEDS: GLUCOSE (DEXTROSE) ORAL GEL -Adults PO PRN (07:03)
[2022-04-07 07:06] VITALS: BP_SYST 145
[2022-04-07 07:21] LABS: ALBUMIN 2.2 g/dL (3.4-4.8); CALCIUM 8.6 mg/dL (8.4-11.0); CREATININE 6.37 mg/dL (0.55-1.30); PHOSPHORUS 5.2 mg/dL (2.7-4.5); TOTAL BILIRUBIN 0.9 mg/dL (0.0-1.0)
[2022-04-07 08:00] VITALS: BP_SYST 161
[2022-04-07] MEDS: DEXTROSE 50% JECT 50 ML DISP.SYRIN IVP PRN (08:12)
[2022-05-01] MEDS ORDERED: NON-FORMULARY MEDICATION (Ergocalciferol (Vitamin D2) (Vitamin D2) 50,000 UNIT) PO SCH (06:30)
== END 2022-04-07 08:25 | disposition short-term general hospital (02) | DRG 640 ==
LOC: SED 18:01 → STU 21:04
PROVIDERS: ADMIT Preventive Medicine Preventive Medicine/Occupational Environmental Medicine; ATTEND Preventive Medicine Preventive Medicine/Occupational Environmental Medicine
PROC: 05HY33Z Insertion of Infusion Device into Upper Vein, Percutaneous Approach (ICD-10-PCS; principal; 2022-03-31)
PROC: B54NZZA Ultrasonography of Left Upper Extremity Veins, Guidance (ICD-10-PCS; 2022-03-31)
PROC: 5A1D70Z Performance of Urinary Filtration, Intermittent, Less than 6 Hours Per Day (ICD-10-PCS; 2022-04-01)
PROC: 5A1D70Z Performance of Urinary Filtration, Intermittent, Less than 6 Hours Per Day (ICD-10-PCS; 2022-04-02)
PROC: 5A1D70Z Performance of Urinary Filtration, Intermittent, Less than 6 Hours Per Day (ICD-10-PCS; 2022-04-04)
PROC: 5A1D70Z Performance of Urinary Filtration, Intermittent, Less than 6 Hours Per Day (ICD-10-PCS; 2022-04-06)
DX: E87.5 Hyperkalemia (principal); E43 Unspecified severe protein-calorie malnutrition; I21.A1 Myocardial infarction type 2; N18.6 End stage renal disease; I12.0 Hypertensive chronic kidney disease with stage 5 chronic kidney disease or end stage renal disease; E87.1 Hypo-osmolality and hyponatremia; E87.70 Fluid overload, unspecified; D63.1 Anemia in chronic kidney disease; D69.6 Thrombocytopenia, unspecified; E83.39 Other disorders of phosphorus metabolism; N40.0 Benign prostatic hyperplasia without lower urinary tract symptoms; I25.10 Atherosclerotic heart disease of native coronary artery without angina pectoris; E11.65 Type 2 diabetes mellitus with hyperglycemia; Z20.822 Contact with and (suspected) exposure to COVID-19; I70.0 Atherosclerosis of aorta; E88.09 Other disorders of plasma-protein metabolism, not elsewhere classified; E83.52 Hypercalcemia; E83.41 Hypermagnesemia; J44.9 Chronic obstructive pulmonary disease, unspecified; E11.22 Type 2 diabetes mellitus with diabetic chronic kidney disease; Z88.8 Allergy status to other drugs, medicaments and biological substances; Z79.899 Other long term (current) drug therapy; Z99.2 Dependence on renal dialysis; Z86.73 Personal history of transient ischemic attack (TIA), and cerebral infarction without residual deficits; I25.2 Old myocardial infarction; Z68.28 Body mass index [BMI] 28.0-28.9, adult
CPT/HCPCS: 36415; 71045; 76700-TC; 80048; 80053; 80074; 80076; 82009; 82103; 82390; 82728; 83516; 83540; 83550; 83735; 83880; 84100; 84484; 85025; 85610-TC; 85730-TC; 86038; 86376; 87081; 93005; 93017; 96374; 99285; A9500; G0378; G0480; G0481; J1815; J2785; J7512; U0003

== ENCOUNTER 2023-04-26 14:07 | Emergency (ER) | payer MEDICARE, OTHER ==
[~2023-04-26] VITALS: Ht 172.7 cm; Wt 90.3 kg
[2023-04-26 14:07] VITALS: BP_SYST 170; PULSE 130; RESP 18; TEMP 97.2; O2SAT 98
[~2023-04-26 14:07] MED LIST changes: +HYDR-4038 PO; -HYDR100T25 PO
[2023-04-26 15:14] LABS: EOSINOPHILS # (AUTO) 0.2 K/uL (0.0-0.4); EOSINOPHILS % (AUTO) 2.7 % (0.0-4.0); HEMOGLOBIN 9.2 g/dL (14.0-18.0); LYMPHOCYTES # (AUTO) 0.9 K/uL (1.0-5.5); LYMPHOCYTES % (AUTO) 15.8 % (20.5-51.5); MEAN CORPUSCULAR HEMOGLOBIN 34 pg (27-31); MEAN CORPUSCULAR HGB CONC 33 % (32-36); MEAN CORPUSCULAR VOLUME 102 fL (79.0-98.0); MONOCYTES # (AUTO) 0.5 K/uL (0.0-1.0); MONOCYTES % (AUTO) 8.6 % (1.7-9.3); NEUTROPHILS % (AUTO) 72.4 % (40.0-70.0); PLATELET COUNT (AUTO) 200 K/uL (130-430); RED BLOOD CELL COUNT(AUTO) 2.75 MIL/uL (4.2-6.2); WHITE BLOOD COUNT (AUTO) 5.8 K/uL (4.8-10.8)
[2023-04-26 15:15] LABS: BASOPHILS % (AUTO) 0.5 % (0.0-2.0); NEUTROPHILS # (AUTO) 4.2 K/uL (1.8-7.7)
[2023-04-26 15:43] LABS: ANION GAP 8 (5-15); CARBON DIOXIDE 35 mmol/L (23-29); CHLORIDE 99 mmol/L (98-107); CREATININE 3.31 mg/dL (0.55-1.30); GFR AFRICAN AMERICAN 25 mL/min (>90); GLUCOSE 132 mg/dL (74-106); POTASSIUM 4.2 mmol/L (3.5-5.1); SODIUM SERUM 142 mmol/L (136-145); UREA NITROGEN, BLOOD 15 mg/dL (8-21)
[2023-04-26 15:44] LABS: GFR NON AFRICAN-AMERICAN 20 mL/min (>90)
[2023-04-26] MEDS: hydrALAZINE HCL 25 MG TABLET PO ONE (16:25)
[2023-04-26] MEDS: NITROGLYCERIN 1 INCH (GM) OINT. TP ONE (16:45)
[2023-04-26] MEDS: METOPROLOL SUCCINATE 50 MG TAB.SR.24H (TOPROL XL) PO ONE (16:46)
[2023-04-26] MEDS: ASPIRIN 81 MG TABLET(ECOTRIN) PO ONE (16:46)
[2023-04-26] MEDS: cloNIDine HCL 0.1 MG TABLET PO ONE (17:57)
[2023-04-26] MEDS: ACETAMINOPHEN 500 MG TABLET PO ONE (17:58)
[2023-04-26 20:42] VITALS: BP_SYST 162; PULSE 72; RESP 18; TEMP 97.8; O2SAT 96
== END 2023-04-26 20:42 | disposition short-term general hospital (02) ==
LOC: SED 14:07
DX: J90 Pleural effusion, not elsewhere classified (principal); R00.0 Tachycardia, unspecified; I12.9 Hypertensive chronic kidney disease with stage 1 through stage 4 chronic kidney disease, or unspecified chronic kidney disease; N18.9 Chronic kidney disease, unspecified; I25.2 Old myocardial infarction; I25.10 Atherosclerotic heart disease of native coronary artery without angina pectoris; J44.9 Chronic obstructive pulmonary disease, unspecified; E11.9 Type 2 diabetes mellitus without complications; Z79.4 Long term (current) use of insulin; Z98.890 Other specified postprocedural states
CPT/HCPCS: 36415; 71045; 80048; 83880; 84484; 85025; 93005; 99285